=== PATIENT | female | born 1945 | race Caucasian/White ===

== ENCOUNTER → 2017-03-13 | Day surgery (SDC) | payer OTHER ==
[2017-03-06 10:20] VITALS: Ht 154.9 cm; Wt 72.3 kg
[~2017-03-13] VITALS: Ht 154.9 cm; Wt 72.3 kg
[~2017-03-13] MED LIST: ACYC1CAP8 PO; ATOR-22 PO; CALC600T9; FLUT230A INH; LIDOCAINE HCL 2% 2 ML VIAL (20MG/ML) ONE; LISI-461 PO; OMEG10007 PO; PROPOFOL IV EMULSION 10 MG/ML 20 ML VIAL IV ONE; VNTHFA/IN INH
[2017-03-13 12:01] VITALS: TEMP 36.6
--- NOTE | 2017-03-13 12:30 | Endo History and Physical ---
History & Physical Date of Service: Mar 13, 2017. Chief Complaint: Hx polyps Referring Physician: Heide Cha History of Present Illness History of colonic adenoma Past Medical History Arthritis, COPD Past Surgical History Hx Cardiac Surgery: No Hx Internal Defibrillator: No Hx Pacemaker: No Hx Abdominal Surgery: Yes (KEILA) Hx of Implantable Prosthesis: No Hx Post-Op Nausea and Vomiting: No Hx Cancer Surgery: No Hx Thoracic Surgery: No Hx Orthopedic: No Hx Urinary Tract Surgery: No Family History Colon CA Social History Smoking Status: Former Smoker Hx Substance Use: No Hx Alcohol Use: No Allergies Coded Allergies: Levofloxacin (Verified Allergy, Unknown, BUGS CRAWLING FACE, 03/06/17) Sulfamethoxazole w/Trimethoprim (Verified Allergy, Unknown, MOUTH SORES, ) Current Medications Reported Home Medications Medications Dose Route/Sig Max Daily Dose Days Date Category Ventolin Hfa (Albuterol) 200 Puffs/00993 Mcg Aers 2-4 Puffs INH Q6H PRN 03/06/17 Reported Lipitor (Atorvastatin Calcium) 20 Mg Tab 20 Mg PO QPM 03/06/17 Reported Zestril (Lisinopril) 10 Mg Tab 10 Mg PO QAM 03/06/17 Reported Advair Hfa 230/21 Mcg (Fluticasone-Salmeterol 230/21 Mcg) 1 Aer Aer 2 Puffs INH BID 01/27/15 Rx Calcium + D (Calcium Carbonate-Vitamin D) 1 Tab Tab 1 Tab DAILY@1230 01/23/15 Reported [place]-3 (Fish Oil) 1 Ea Cap 1 Cap PO QAM 06/15/08 Reported Zovirax (Acyclovir) 200 Mg Cap 200 Mg PO QPM 06/15/08 Reported Vital Signs Weight (Kilograms): 72.27 Height (Feet): 5 Height (Inches): 1 Date Time Temp Pulse Resp B/P (MAP) Pulse Ox O2 Delivery O2 Flow Rate FiO2 03/13/17 12:01 36.6 84 20 136/67 (90) 94 Room Air Physical Exam General Appearance: WD/WN, no apparent distress Respiratory/Chest: Auscultation: breath sounds normal, no wheezing Cardiovascular: Heart Auscultation: RRR, no murmurs Abdomen: Inspection & Palpation: soft, no tenderness, guarding & rebound Assessment and Plan Colonoscopy today.
--- NOTE | 2017-03-13 13:44 | Discharge Instructions ---
Endoscopy Patient Instructions Date / Procedure(s) Performed Mar 13, 2017. Colonoscopy Allergy Information Coded Allergies: Levofloxacin (Verified Allergy, Unknown, BUGS CRAWLING FACE, 03/06/17) Sulfamethoxazole w/Trimethoprim (Verified Allergy, Unknown, MOUTH SORES, ) Discharge Date / Findings Mar 13, 2017. Two small colon polyps removed. Medication Instructions Restart Stopped Medication(s): Restart all medications today. Provider Instructions Activity Restrictions - No exercising or heavy lifting for 24 hours. - Do not drink alcohol the day of the procedure. - Do not drive a car or operate machinery until the day after the procedure. - Do not make any important decisions or sign important papers in 24 hours after the procedure. Following Day: - Return to full activity which may include returning to work/school. Diet Start your diet with liquids and light foods (jello, soup, juice, toast). Then eat your usual diet if not nauseated. Treatment For Common After Affects For mild abdominal pain, bloating, or excessive gas: - Rest - Eat lightly - Lie on right side Follow-Up Information Follow-up with Heide Cha as scheduled Anesthesia Information What You Should Know You have had a procedure that required some medicine to reduce anxiety and discomfort. This treatment is called moderate sedation. After receiving the treatment, you may be sleepy, but you will be able to breathe on your own. The effects of the treatment may last for several hours. Follow these instructions along with Activity/Diet recommendations noted above: * Do NOT do anything where dizziness or clumsiness would be dangerous. * Rest quietly at home today, then you can be up and about tomorrow. * Have a responsible person stay with you the rest of today. * You may have had an I.V. today. If so, you may take the dressing off later today. Recommendations Call your doctor if: * Trouble breathing * Continuous vomiting for more than 24 hours * Temperature above 101 degrees * Severe abdominal pain or bloating * Pain not relieved by pain medicine ordered * There is increased drainage or redness from any incision * A large amount of rectal bleeding greater than 2-3 tablespoons. (If you had a polyp/s removed or have hemorrhoids, a small amount of blood - from the rectum is to be expected.) * You have any unanswered questions or concerns. IN THE EVENT OF A SERIOUS EMERGENCY, GO TO THE NEAREST EMERGENCY ROOM Your discharge instructions were prepared by provider Satish Gomez. Patient Instructions Signature Page [place] Patient (or Guardian) Signature/Date: I have read and understand the instructions given to me by my caregivers. Caregiver/RN/Doctor Signature/Date: The above-named patient and/or guardian has received patient instructions on this date. + Original Patient Signature Page (only) stays with chart. Please make copy for patient.
--- NOTE | 2017-03-13 13:56 | Anesthesiology Progress Note ---
Anesthesia Post Op Note Date & Time Mar 13, 2017 at 13:56 Vital Signs Pain Intensity: 0 Vital Signs Past 12 Hours Date Time Temp Pulse Resp B/P (MAP) Pulse Ox O2 Delivery O2 Flow Rate FiO2 03/13/17 13:40 80 20 121/53 (75) 96 Mask 10 03/13/17 12:01 36.6 84 20 136/67 (90) 94 Room Air Notes Mental Status: alert / awake / arousable, participated in evaluation Pt Amnestic to Procedure: Yes Nausea / Vomiting: adequately controlled Pain: adequately controlled Airway Patency, RR, SpO2: stable & adequate BP & HR: stable & adequate Hydration State: stable & adequate Anesthetic Complications: no major complications apparent Doing wel. Awake. VSS
[2017-03-13 14:10] VITALS: BP 133/61; PULSE 72; O2SAT 92
--- NOTE | 2017-03-14 00:14 | GI REPORT ---
Procedure Date: 03/13/2017 1:06 PM Procedure: Colonoscopy Indications: High risk colon cancer surveillance: Personal history of colonic polyps Medicines: Propofol per Anesthesia Complications: No immediate complications. Estimated blood loss: None. Estimated Blood Loss: Estimated blood loss: none. Procedure: Pre-Anesthesia Assessment: - Prior to the procedure, a History and Physical was performed, and patient medications, allergies and sensitivities were reviewed. The patient's tolerance of previous anesthesia was reviewed. - ASA Grade Assessment: III - A patient with severe systemic disease. After I obtained informed consent, the scope was passed under direct vision. Throughout the procedure, the patient's blood pressure, pulse, and oxygen saturations were monitored continuously. The scope was introduced through the anus and advanced to the terminal ileum, with identification of the appendiceal orifice and IC valve. The colonoscopy was performed with difficulty due to significant looping. The patient tolerated the procedure well. The quality of the bowel preparation was excellent. The bowel preparation used was split dose MIralax. Findings: A 3 mm polyp was found in the transverse colon. The polyp was flat. The polyp was removed with a cold snare. Resection and retrieval were complete. A 3 mm polyp was found at the splenic flexure. The polyp was sessile. The polyp was removed with a cold snare. Resection and retrieval were complete. Verification of patient identification for the specimens was done by the physician and nurse using the patient's name, date and medical record number. Impression: - One 3 mm polyp in the transverse colon, removed with a cold snare. Resected and retrieved. - One 3 mm polyp at the splenic flexure, removed with a cold snare. Resected and retrieved. - Otherwise normal to terminal ileum. Recommendation: - Repeat colonoscopy in 5 years for surveillance based on pathology results. - Discharge patient to home (with escort). Satish Gomez M.D. Satish Gomez MD 03/13/2017 1:43:34 PM This report has been signed electronically. Note Initiated On: 03/13/2017 1:06 PM I attest to the content of the Intraoperative Record and orders documented therein, exceptions below
== END | disposition home or self-care (01) ==
LOC: C.GI 11:41
PROVIDERS: ATTEND Internal Medicine Gastroenterology
DX: Z12.11 Encounter for screening for malignant neoplasm of colon (principal); D12.3 Benign neoplasm of transverse colon; Z86.010 Personal history of colon polyps; J44.9 Chronic obstructive pulmonary disease, unspecified; Z80.0 Family history of malignant neoplasm of digestive organs; Z87.891 Personal history of nicotine dependence; Z79.899 Other long term (current) drug therapy

== ENCOUNTER 2022-06-17 18:54 | Inpatient (IN) ==
[2022-06-17] MEDS ORDERED: ALBUT/IPRATROP 3MG/0.5MG NEB 3 ML VIAL INH STA (19:10)
[2022-06-17] MEDS ORDERED: methylPREDNISolone 125 MG/2 ML VIAL IV STA (19:10)
[2022-06-17] MEDS ORDERED: MAGNESIUM SULFATE / D5W 1 GM/100 ML BAG IV ONE (19:10)
--- NOTE | 2022-06-17 19:20 | Emergency Department Note ---
Impression & Plan Acute respiratory failure with hypoxia and hypercarbia, Acute exacerbation of chronic obstructive airways disease, Congestive heart failure ED Provider Note NAME: YOBANI BOND AGE: 77 SEX: F : 1945 ARRIVES VIA: Walk-In INFORMANT: Patient, ED PROVIDER(S): Sandip Randall MD Chief Complaint: Shortness of breath HPI: Patient presents due to concern for shortness of breath which has been ongoing for several days but seem to worsen today. The patient had been seen at [facility] in [place] by Dr. Mac and she was recommended to present to the emergency department yesterday but did not do so. Patient has had some leg swelling but is not on a diuretic. The patient is a former smoker but does not use oxygen at home. The patient was noted to be 78% on several liters in triage. Patient denies any chest pains or abdominal pain no nausea vomiting. Patient denies any cough. Patient does complain of MARTIN. No significant orthopnea. Patient has noticed some leg swelling. ROS: See HPI for pertinent positives and negatives. A total of 10 systems were reviewed and otherwise negative. Past medical history: See below Surgical history: See below Social history: See below Physical Exam: GENERAL: Mildly tachypneic in the mild distress. EYE EXAM: Normal conjunctiva. PERRL, no anisocoria and EOM's grossly intact w/o pain. NECK: Supple, no nuchal rigidity, no adenopathy, non-tender. No signs of meningismus. FROM of the neck with good chin to chest and neck extension. No stridor. LUNGS: Decreased breath sounds throughout, tachypnea noted HEART: NSR, no MRG. ABDOMEN: Abdomen soft, non-tender, normo-active bowel sounds, no masses, no rebound or guarding. BACK: No CVA TTP. SKIN: No rashes and no bruising. UPPER EXTREMITIES: Upper extremities are grossly normal. LOWER EXTREMITIES: Grossly normal, 1-2+ bilateral lower extremity edema, slightly greater in the left compared to the right. Erythema noted to the left calf no calf pain. Neurovascular intact distally bilaterally compartments are soft and without crepitus. NEURO EXAM: A&O x3, cranial nerves II-XII grossly intact, normal speech, moves all 4 extremities. Differential diagnoses: Reactive airway disease, pneumonia, pneumothorax, COPD, CHF, infections, cardiac ischemia, pulmonary embolism, musculoskeletal, gastrointestinal, as well as other pathologies. Course: Patient was seen and evaluated the bedside. Full history physical exam was performed. EKG interpreted by me Sinus with first-degree AV block, rate of 94 prolonged AL wide QRS left and a rash-like pattern. No sgarbossa criteria Imaging Studies: See Below Cardiac monitoring: An order was placed for continuous cardiac monitoring. The monitor shows a rate of 90 with sinus rhythm. MDM: Patient was seen due to concern for shortness of breath. Blood work was obtained patient was placed on BiPAP breathing treatment was ordered in addition to mag and duo nebs. EKG troponin BNP DVT ultrasound also ordered. The patient's blood work shows a normal white count H&H and platelet count. The patient's kidney function is unremarkable. The patient does have hypercarbia with associated acidosis seen on her VBG with a PCO2 of 78 VBG pH is 7.29. P atient is not confused and does appear to be improved after being on the BiPAP. The patient does have mild elevation in troponin at 19.2 elevation of BNP at 129. Patient was ordered Lasix 20 mg. The patient is Lasix warren. COVID flu and RSV negative. Patient's DVT ultrasound was negative. Patient's chest x-ray does show cardiomegaly emphysema and vascular congestion. There is consolidation of both lung bases. The patient did already receive a dose of Rocephin but this could also be fluid. I did speak with the on-call hospitalist Dr. Yarbrough and the patient was admitted to the medicine service. Critical Care: I have personally spent 65 minutes of critical care time in direct management of this patient. This includes bedside care, interpretation of diagnostic studies, and testing, discussion with consultants, patient, and family members, and other require inpatient management activities. This 65 minutes is in excess of all separately billable procedures. Past Med/Surg History Medical History Acute respiratory failure COPD (chronic obstructive pulmonary disease) Diabetes mellitus, type II Dyslipidemia History of adenomatous polyp of colon Hypertension Surgical History Status post appendectomy Status post cholecystectomy Status post colonoscopy Social History Smoking Status: Former smoker Hx Alcohol Use: No Hx Substance Use: No Feels Safe at Home: Yes Allergies Allergies Allergy/AdvReac Type Severity Reaction Status Date / Time Bactrim Allergy Unknown MOUTH SORES Verified 03/06/17 10:18 levofloxacin Allergy Unknown BUGS Verified 06/17/22 20:15 CRAWLING FACE sulfamethoxazole [Bactrim] Allergy Unknown MOUTH SORES Verified 06/17/22 20:15 trimethoprim [Bactrim] Allergy Unknown MOUTH SORES Verified 06/17/22 20:15 Home Meds Home Medications Medication Instructions Recorded Confirmed acyclovir 800 mg tablet 800 mg PO QAM 06/17/22 06/17/22 albuterol sulfate 90 mcg/actuation 2 puff inhalation Q4 PRN 06/17/22 06/17/22 aerosol inhaler SOB,COUGH,WHEEZING atorvastatin 20 mg tablet 20 mg PO HS 06/17/22 06/17/22 fluticasone propionate 230 2 puff inhalation BID 06/17/22 06/17/22 mcg-salmeterol 21 mcg/actuation HFA inhaler (Advair HFA) hydrochlorothiazide 12.5 mg capsule 12.5 mg PO QAM 06/17/22 06/17/22 lisinopril 20 mg tablet 40 mg PO QAM 06/17/22 06/17/22 metformin 500 mg tablet,extended 1,000 mg PO QAM 06/17/22 06/17/22 release 24 hr Results & Data (ED) Vital Signs Vital Signs - 24 hr 06/17/22 18:56 06/17/22 18:56 06/17/22 20:00 Temperature 36.8 C Temperature Source Temporal Artery Scan Pulse Rate 87 Pulse Rate [Finger] Pulse Rate from SpO2 Sensor 87 Respiratory Rate 30 H 18 Respiratory Effort / Characteristics Non-Labored Respiratory Depth Normal Respiratory Pattern Blood Pressure 142/70 H Blood Pressure Mean 94 Blood Pressure Position Sitting Pulse Oximetry 76 L 78 L 97 Oxygen Delivery Method Nasal Cannula Nasal Cannula BiPAP Oxygen Flow Rate 6 6 Fraction of Inspired Oxygen SaO2/FiO2 Ratio Sepsis Recent Fever Within 48 Hours No Sepsis New/Unexplained Change in Mental Status N/A Sepsis Action Taken by Nursing No Action Required 06/17/22 20:42 06/17/22 20:30 06/17/22 20:45 Temperature Temperature Source Pulse Rate 96 H 96 H Pulse Rate [Finger] Pulse Rate from SpO2 Sensor 93 H 99 H Respiratory Rate 26 H 27 H Respiratory Effort / Characteristics Respiratory Depth Respiratory Pattern Blood Pressure 152/75 H Blood Pressure Mean 100 Blood Pressure Position Pulse Oximetry 97 98 97 Oxygen Delivery Method BiPAP BiPAP BiPAP Oxygen Flow Rate Fraction of Inspired Oxygen SaO2/FiO2 Ratio Sepsis Recent Fever Within 48 Hours Sepsis New/Unexplained Change in Mental Status Sepsis Action Taken by Nursing 06/17/22 19:15 06/17/22 21:45 06/17/22 19:40 Temperature Temperature Source Pulse Rate 95 H Pulse Rate [Finger] 95 H Pulse Rate from SpO2 Sensor Respiratory Rate 26 H 26 H Respiratory Effort / Characteristics Spontaneous Spontaneous Respiratory Depth Normal Respiratory Pattern Regular Blood Pressure Blood Pressure Mean Blood Pressure Position Pulse Oximetry 90 90 Oxygen Delivery Method BiPAP Oxygen Flow Rate Fraction of Inspired Oxygen 30 28 30 SaO2/FiO2 Ratio Sepsis Recent Fever Within 48 Hours Sepsis New/Unexplained Change in Mental Status Sepsis Action Taken by Nursing 06/17/22 21:00 06/17/22 21:30 06/17/22 22:00 Temperature Temperature Source Pulse Rate 94 H 92 H Pulse Rate [Finger] Pulse Rate from SpO2 Sensor 94 H 92 H Respiratory Rate 23 23 Respiratory Effort / Characteristics Respiratory Depth Respiratory Pattern Blood Pressure 131/56 L 131/56 L 145/70 H Blood Pressure Mean 81 81 95 Blood Pressure Position Pulse Oximetry 97 87 L Oxygen Delivery Method Oxygen Flow Rate Fraction of Inspired Oxygen SaO2/FiO2 Ratio Sepsis Recent Fever Within 48 Hours Sepsis New/Unexplained Change in Mental Status Sepsis Action Taken by Nursing 06/17/22 22:27 06/17/22 22:24 06/17/22 23:00 Temperature Temperature Source Pulse Rate 91 H 84 Pulse Rate [Finger] Pulse Rate from SpO2 Sensor 83 Respiratory Rate 25 H 21 Respiratory Effort / Characteristics Non-Labored Spontaneous Respiratory Depth Normal Respiratory Pattern Regular Blood Pressure 117/53 L Blood Pressure Mean 74 Blood Pressure Position Pulse Oximetry 93 89 L 92 Oxygen Delivery Method BiPAP Oxygen Flow Rate Fraction of Inspired Oxygen 40 40 SaO2/FiO2 Ratio 232 Sepsis Recent Fever Within 48 Hours Sepsis New/Unexplained Change in Mental Status Sepsis Action Taken by Nursing 06/18/22 00:00 Temperature Temperature Source Pulse Rate 85 Pulse Rate [Finger] Pulse Rate from SpO2 Sensor 87 Respiratory Rate 20 Respiratory Effort / Characteristics Respiratory Depth Respiratory Pattern Blood Pressure 113/57 L Blood Pressure Mean 75 Blood Pressure Position Pulse Oximetry 93 Oxygen Delivery Method BiPAP Oxygen Flow Rate Fraction of Inspired Oxygen SaO2/FiO2 Ratio Sepsis Recent Fever Within 48 Hours Sepsis New/Unexplained Change in Mental Status Sepsis Action Taken by [facility] Medications Current Medication List: was personally reviewed by me Laboratory Data Attestation: I reviewed the patient's lab results. Result diagrams: 06/17/22 19:25 06/17/22 19:25 Lab Results 06/17/22 06/17/22 06/17/22 Range/Units 19:25 19:25 19:25 WBC 9.57 (4.8-10.8) K/ul RBC 4.40 (3.93-5.22) M/uL Hgb 12.5 (12.0-16.0) g/dl Hct 42.3 (34.1-44.9) % MCV 96.1 (80.0-100.0) fL MCH 28.4 (25.0-34.0) pg MCHC 29.6 L (32.0-36.0) g/dL RDW Std Deviation 55.3 H (36.4-46.3) fL RDW Coeff of Jesu 15.5 H (11.5-14.5) % Plt Count 307 (130-400) K/uL MPV 9.4 (9.4-12.3) fL Immature Gran % (Auto) 0.5 % Neut % (Auto) 74.4 % Lymph % (Auto) 13.5 % [place] % (Auto) 10.2 % Eos % (Auto) 0.7 % Baso % (Auto) 0.7 % Neut # (Auto) 7.11 H (1.4-6.5) K/uL Lymph # (Auto) 1.29 (1.2-3.4) K/uL [place] # (Auto) 0.98 H (0.24-0.82) K/uL Eos # (Auto) 0.07 (0-0.50) K/uL Baso # (Auto) 0.07 (0-0.2) K/uL Immature Gran # (Auto) 0.05 H (0.00-0.02) K/uL Absolute Nucleated RBC 0.03 H (0-0) K/uL Nucleated RBC % (auto) 0.3 % PT (9.0-12.0) Seconds INR (0.9-1.1) APTT (21.0-31.0) Seconds PTT Ratio VBG pH (7.36-7.41) VBG pCO2 (38-50) mmHg VBG pO2 mmHg VBG HCO3 mmol/L VBG O2 Saturation % VBG Base Excess mEq/L Sodium 135 L (136-145) mmol/L Potassium 4.5 (3.5-5.1) mmol/L Chloride 96 L (98-107) mmol/L Carbon Dioxide 34 H (21-32) mmol/L Anion Gap 5 (3-11) BUN 21 (6-23) mg/dl Creatinine 0.65 (0.6-1.2) mg/dl Est Cr Clr Drug Dosing 64.9 ml/min Est GFR ( Amer) 97.9 ml/min Est GFR (Non-Af Amer) 84.4 ml/min BUN/Creatinine Ratio 32.3 H (10-20) Glucose 158 H (70-99(Fasting)) mg/dl Calcium 8.7 (8.5-10.1) mg/dl Magnesium 2.2 (1.7-2.4) mg/dl Total Bilirubin 0.5 (0.2-1.0) mg/dl AST 18 (13-39) U/L ALT 17 (7-52) U/L Alkaline Phosphatase 61 (34-104) U/L Troponin I High Sens 19.2 H (0-14) pg/ml B-Natriuretic Peptide 129 H (0-100) pg/ml Total Protein 7.3 (6.0-8.3) gm/dl Albumin 4.1 (3.4-5.0) gm/dl Globulin 3.2 (2.5-4.0) gm/dl Albumin/Globulin Ratio 1.3 (0.9-2) SARS-CoV-2 (PCR) (Negative) Influenza Type A (PCR) (Neg) Influenza Type B (PCR) (Neg) RSV (RT-PCR) (Neg) 06/17/22 06/17/22 06/17/22 Range/Units 19:25 19:30 19:51 WBC (4.8-10.8) K/ul RBC (3.93-5.22) M/uL Hgb (12.0-16.0) g/dl Hct (34.1-44.9) % MCV (80.0-100.0) fL MCH (25.0-34.0) pg MCHC (32.0-36.0) g/dL RDW Std Deviation (36.4-46.3) fL RDW Coeff of Jesu (11.5-14.5) % Plt Count (130-400) K/uL MPV (9.4-12.3) fL Immature Gran % (Auto) % Neut % (Auto) % Lymph % (Auto) % [place] % (Auto) % Eos % (Auto) % Baso % (Auto) % Neut # (Auto) (1.4-6.5) K/uL Lymph # (Auto) (1.2-3.4) K/uL [place] # (Auto) (0.24-0.82) K/uL Eos # (Auto) (0-0.50) K/uL Baso # (Auto) (0-0.2) K/uL Immature Gran # (Auto) (0.00-0.02) K/uL Absolute Nucleated RBC (0-0) K/uL Nucleated RBC % (auto) % PT 10.9 (9.0-12.0) Seconds INR 1.0 (0.9-1.1) APTT 23.5 (21.0-31.0) Seconds PTT Ratio 0.9 VBG pH 7.29 L (7.36-7.41) VBG pCO2 78 H (38-50) mmHg VBG pO2 58 mmHg VBG HCO3 38 mmol/L VBG O2 Saturation 86.8 % VBG Base Excess 7.9 mEq/L Sodium (136-145) mmol/L Potassium (3.5-5.1) mmol/L Chloride (98-107) mmol/L Carbon Dioxide (21-32) mmol/L Anion Gap (3-11) BUN (6-23) mg/dl Creatinine (0.6-1.2) mg/dl Est Cr Clr Drug Dosing ml/min Est GFR ( Amer) ml/min Est GFR (Non-Af Amer) ml/min BUN/Creatinine Ratio (10-20) Glucose (70-99(Fasting)) mg/dl Calcium (8.5-10.1) mg/dl Magnesium (1.7-2.4) mg/dl Total Bilirubin (0.2-1.0) mg/dl AST (13-39) U/L ALT (7-52) U/L Alkaline Phosphatase (34-104) U/L Troponin I High Sens (0-14) pg/ml B-Natriuretic Peptide (0-100) pg/ml Total Protein (6.0-8.3) gm/dl Albumin (3.4-5.0) gm/dl Globulin (2.5-4.0) gm/dl Albumin/Globulin Ratio (0.9-2) SARS-CoV-2 (PCR) NEGATIVE (Negative) Influenza Type A (PCR) Negative (Neg) Influenza Type B (PCR) Negative (Neg) RSV (RT-PCR) Negative (Neg) Administered Medications Discontinued Medications Albuterol (Albut/Ipratrop 3mg/0.5mg Neb 3 Ml Vial) 12 ml INH ONE STA Stop: 06/17/22 19:11 Last Admin: 06/17/22 19:33 Dose: 12 ml Documented By: ABISAI Furosemide (Furosemide Inj 20 Mg/2 Ml Vial) 20 mg IV ONE ONE Stop: 06/17/22 20:46 Last Admin: 06/17/22 21:29 Dose: 20 mg Documented By: DP Magnesium Sulfate/Dextrose (Magnesium Sulfate / D5w) 1 gm in 100 mls @ 200 mls/hr IV ONE ONE Stop: 06/17/22 19:39 Last Infusion: 06/17/22 19:58 Dose: 0 mls/hr Documented By: Admin: 06/17/22 19:27 Dose: 200 mls/hr Documented By: ABISAI Ceftriaxone Sodium (Rocephin) 2,000 mg in 70 mls @ 140 mls/hr IV NOW STA Stop: 06/17/22 20:04 Last Infusion: 06/17/22 21:03 Dose: 0 mls/hr Documented By: Admin: 06/17/22 20:23 Dose: 140 mls/hr Documented By: [id number] Methylprednisolone (Methylprednisolone 125 Mg/2 Ml Vial) 125 mg IV NOW STA Stop: 06/17/22 19:11 Last Admin: 06/17/22 19:29 Dose: 125 mg Documented By: ABISAI Imaging Data Radiologist's Impression: Chest X-Ray 06/17/22 19:10 SINGLE VIEW CHEST CLINICAL HISTORY: Dyspnea. FINDINGS: An AP, portable, upright chest radiograph is compared to study dated 01/24/2015 and correlated with chest CT dated 01/23/2015. The examination is de graded by portable technique, and by the patient's head obscuring the apices. The heart is enlarged noting atherosclerotic calcification of the thoracic aorta. There is pulmonary vascular congestion. Emphysema and chronic interstitial thickening similar to previous. Airspace consolidation is seen at both lung bases. No pneumothorax is seen. The skeletal structures are osteopenic. The bony thorax is grossly intact. IMPRESSION: 1. Cardiomegaly and emphysema with pulmonary vascular congestion. 2. Airspace consolidation is seen at both lung bases. This could represent a component of pulmonary edema and/or pneumonia/aspiration pneumonitis. Clinical correlation will be required and radiographic follow-up to resolution is recommended. ACT 112: Negative or not required by law. Electronically signed by: Arik Riggs M.D. 06/17/2022 7:56 PM Venous Doppler Study 06/17/22 19:12 ULTRASOUND LEFT LOWER EXTREMITY VENOUS CLINICAL HISTORY: Left leg swelling. Hypoxia. COMPARISON STUDY: No priors. TECHNIQUE: Real-time, grayscale, and color Doppler sonography of the deep veins of the left lower extremity was performed from the inguinal crease to the calf. Compression and augmentation were utilized. FINDINGS: There is no sonographic evidence of deep venous thrombosis identified in the left lower extremity. The common femoral, superficial femoral, and popliteal veins are patent and normally compressible. The greater saphenous vein and the profunda femoris vein at the junction with the common femoral vein are clear. The visualized calf veins are patent. IMPRESSION: There is no sonographic evidence of deep venous thrombosis identified in the left lower extremity. ACT 112: Negative or not required by law. Electronically signed by: Arik Riggs M.D. 06/17/2022 8:39 PM Discharge Plan Visit Data Chief Complaint: Shortness of Breath/Dyspnea Stated Complaint: TROUBLE BREATHING, PNEUMONIA ED Provider: Sandip Randall Discharge Problem: Acute respiratory failure with hypoxia and hypercarbia, Acute exacerbation of chronic obstructive airways disease, Congestive heart failure Patient Disposition: Admitted As Inpatient Discharge Instructions Interventions: ED Discharge Assessment Last Done: 06/17/22 23:20 Forms Stand Alone Forms: My [employer] Prescriptions Prescriptions: No Action atorvastatin 20 mg tablet 20 mg PO HS lisinopril 20 mg tablet 40 mg PO QAM acyclovir 800 mg tablet 800 mg PO QAM hydrochlorothiazide 12.5 mg capsule 12.5 mg PO QAM albuterol sulfate 90 mcg/actuation HFA aerosol inhaler 2 puff INHALATION Q4 PRN (Reason: SOB,COUGH,WHEEZING) metformin 500 mg tablet extended release 24 hr 1,000 mg PO QAM Advair HFA 230-21 mcg/actuation HFA aerosol inhaler 2 puff INHALATION BID Referrals Referrals: PCP,NO [Physician] -
[2022-06-17] MEDS ORDERED: cefTRIAXone SODIUM 2,000 MG/70 ML BAG IV STA (19:35)
[2022-06-17 19:45] LABS: Basophils # (auto) 0.07 K/uL (0-0.2); Basophils % (auto) 0.7 %; Eosinophils # (auto) 0.07 K/uL (0-0.50); Eosinophils % (auto) 0.7 %; Hematocrit (blood only) 42.3 % (34.1-44.9); Hemoglobin 12.5 g/dl (12.0-16.0); Immature Granulocytes # (auto) 0.05 K/uL (0.00-0.02); Immature Granulocytes % (auto) 0.5 %; Lymphocytes # (auto) 1.29 K/uL (1.2-3.4); Lymphocytes % (auto) 13.5 %; Mean Corpuscular Hemoglobin 28.4 pg (25.0-34.0); Mean Corpuscular Hgb Conc 29.6 g/dL (32.0-36.0); Mean Corpuscular Volume 96.1 fL (80.0-100.0); Mean Platelet Volume 9.4 fL (9.4-12.3); Monocytes # (auto) 0.98 K/uL (0.24-0.82); Monocytes % (auto) 10.2 %; Neutrophils # (auto) 7.11 K/uL (1.4-6.5); Neutrophils % (auto) 74.4 %; Nucleated RBC # (auto) 0.03 K/uL (0-0); Nucleated RBC % (auto) 0.3 %; Platelet Count 307 K/uL (130-400); RDW Coefficient of Variation 15.5 % (11.5-14.5); RDW Standard Deviation 55.3 fL (36.4-46.3); White Blood Count 9.57 K/ul (4.8-10.8)
[2022-06-17 19:58] LABS: Base Excess VBG 7.9 mEq/L; HCO3 VBG 38 mmol/L; Oxygen Saturation VBG 86.8 %; PCO2 VBG 78 mmHg (38-50); PO2 VBG 58 mmHg; pH VBG 7.29 (7.36-7.41)
--- NOTE | 2022-06-17 19:58 | XRay Report ---
SINGLE VIEW CHEST CLINICAL HISTORY: Dyspnea. FINDINGS: An AP, portable, upright chest radiograph is compared to study dated 01/24/2015 and correlate d with chest CT dated 01/23/2015. The examination is degraded by portable technique, and by the patient 's head obscuring the apices. The heart is enlarged noting atherosclerotic calcification of the thor acic aorta. There is pulmonary vascular congestion. Emphysema and chronic interstitial thickening sim ilar to previous. Airspace consolidation is seen at both lung bases. No pneumothorax is seen. The ske letal structures are osteopenic. The bony thorax is grossly intact. IMPRESSION: 1. Cardiomegaly and emphysema with pulmonary vascular congestion. 2. Airspace consolidation is seen at both lung bases. This could represent a component of pulmonary e roro and/or pneumonia/aspiration pneumonitis. Clinical correlation will be required and radiographic follow-up to resolution is recommended. ACT 112: Negative or not required by law. Electronically signed by: Arik Riggs M.D. 06/17/2022 7:56 PM
[2022-06-17 20:07] LABS: Partial Thromboplastin Ratio 0.9; Partial Thromboplastin Time 23.5 Seconds (21.0-31.0); Prothrombin Time 10.9 Seconds (9.0-12.0)
[2022-06-17 20:13] LABS: Albumin Globulin Ratio 1.3 (0.9-2); Albumin Level 4.1 gm/dl (3.4-5.0); BUN Creatinine Ratio 32.3 (10-20); Bilirubin,Total 0.5 mg/dl (0.2-1.0); Calcium 8.7 mg/dl (8.5-10.1); Creatinine Clr Calc Pharmacy 64.9 ml/min; Est GFR (African American) 97.9 ml/min; Est GFR (Non-African American) 84.4 ml/min; Globulin 3.2 gm/dl (2.5-4.0); Magnesium 2.2 mg/dl (1.7-2.4); Potassium 4.5 mmol/L (3.5-5.1); Total Protein 7.3 gm/dl (6.0-8.3); Troponin I High Sensitivity 19.2 pg/ml (0-14)
[2022-06-17 20:26] LABS: Influenza A virus by PCR Negative (Neg); Influenza B virus by PCR Negative (Neg); RSV by PCR Negative (Neg); SARS CoV2 RNA(COVID-19) Ceph NEGATIVE (Negative)
--- NOTE | 2022-06-17 20:40 | Ultrasound Report ---
ULTRASOUND LEFT LOWER EXTREMITY VENOUS CLINICAL HISTORY: Left leg swelling. Hypoxia. COMPARISON STUDY: No priors. TECHNIQUE: Real-time, grayscale, and color Doppler sonography of the deep veins of the left lower ext remity was performed from the inguinal crease to the calf. Compression and augmentation were utilized . FINDINGS: There is no sonographic evidence of deep venous thrombosis identified in the left lower ext remity. The common femoral, superficial femoral, and popliteal veins are patent and normally compress ible. The greater saphenous vein and the profunda femoris vein at the junction with the common femora l vein are clear. The visualized calf veins are patent. IMPRESSION: There is no sonographic evidence of deep venous thrombosis identified in the left lower e xtremity. ACT 112: Negative or not required by law. Electronically signed by: Arik Riggs M.D. 06/17/2022 8:39 PM
[2022-06-17] MEDS ORDERED: FUROSEMIDE INJ 20 MG/2 ML VIAL IV ONE (20:45)
[2022-06-18] MEDS ORDERED: POLYETHYLENE (MIRALAX) 17 GM PACK PO PRN (00:39)
[2022-06-18] MEDS ORDERED: FUROSEMIDE INJ 20 MG/2 ML VIAL IV ONE (00:39)
[2022-06-18] MEDS ORDERED: NITROGLYCERIN SL 0.4 MG/TAB TAB SL PRN (00:39)
[2022-06-18] MEDS ORDERED: ALBUT/IPRATROP 3MG/0.5MG NEB 3 ML VIAL NEB PRN (00:39)
[2022-06-18] MEDS ORDERED: ONDANSETRON INJ 2 MG/ML 2 ML VIAL IV PRN (00:39)
[2022-06-18] MEDS ORDERED: ALBUTEROL HFA 8 GM INHALER INH PRN (00:39)
[2022-06-18] MEDS ORDERED: ACETAMINOPHEN 325 MG TAB PO PRN (00:39)
--- NOTE | 2022-06-18 01:08 | History and Physical Report ---
DATE OF ADMISSION: 06/17/2022. CHIEF COMPLAINT: Shortness of breath. HISTORY OF PRESENT ILLNESS: A 77-year-old female with past medical history significant for type 2 diabetes, hyperlipidemia, COPD, hypertension, hepatic steatosis, history of osteoarthritis of multiple joints, history of shingles in the eyes and she takes acyclovir when it flares up, currently taking it, presents with shortness of breath, has been going on for 1 week. She went to PCP's office yesterday for routine visit and found to be hypoxic and advised to come to the EMS, but the patient wanted to go with family members, but apparently she did not come and today she comes with shortness of breath and oxygen sats were 76-78% when she came in and placed on BiPAP. She is saturating in the high 90s on BiPAP, resting comfortably. She states she did not have cough, but after nebs treatment in the ER, she has some phlegm coming out. Denies any chest pain, no headache. Right ear is somewhat groggy. No runny nose, no sore throat. No fevers, no nausea, no vomiting, no abdominal pain. Normal bowel and bladder movements. She also has some swelling in the legs going on for one to two weeks, some dizziness going on for the last one to two weeks. ALLERGIES: BACTRIM AND LEVAQUIN. PAST MEDICAL HISTORY: As mentioned above. PAST SURGICAL HISTORY: Cervix lesion biopsy, colonoscopies, laparoscopic cholecystectomy, appendectomy, cataract surgery. MEDICATIONS: The patient is on acyclovir 800 mg p.o. a.m., albuterol 2 puffs inhalation q.4 hours p.r.n., atorvastatin 20 mg p.o. at bedtime, Advair Diskus 2 puffs inhalation b.i.d., hydrochlorothiazide 12.5 mg p.o. a.m., lisinopril 40 mg p.o. a.m., metformin 1000 mg p.o. a.m. FAMILY HISTORY: Significant for mother has diabetes, twin brother on dialysis. SOCIAL HISTORY: , quit smoking in 2016, smoked half pack a day for 40 years. No alcohol use. No drug use. REVIEW OF SYSTEMS: As per HPI. Rest of the review of systems is negative. PHYSICAL EXAMINATION: GENERAL: The patient is obese, not in acute distress. VITAL SIGNS: Temperature 36.8, pulse 96, respiratory rate 20, blood pressure 150/75, oxygen 97% on BiPAP. HEENT: Pupils equal, round and reactive to light. Head is atraumatic. NECK: No JVD or neck masses. CARDIOVASCULAR: S1 and S2 heard. Regular rate and rhythm. No murmur, no gallop. RESPIRATORY SYSTEM: Normal AP diameter. No accessory muscle use. Bibasilar crackles or rhonchi heard. ABDOMEN: Soft, bowel sounds present, nontender, no distention. CENTRAL NERVOUS SYSTEM: Cranial nerves II through XII grossly intact, nonfocal. EXTREMITIES: Lower extremity, +2 pedal edema present, slightly erythematous changes seen. LABORATORY DATA: WBC 9.5, hemoglobin 12.5, hematocrit 42.3, platelets 607. PT 10.9, INR 1, APTT 23.5. Venous blood gas, pH of 7.29, pCO2 of 78. Sodium 135, potassium 4.5, chloride 96, CO2 of 34, BUN 21, creatinine 0.6, serum glucose 158, calcium 8.7, magnesium 2.2, total bilirubin 0.5, AST 18, ALT 17, alkaline phosphatase 61. Troponin I high sensitivity 19.2. BNP 129. SARS-CoV-2 PCR negative. Influenza A and B PCR negative. RSV PCR negative. IMAGING DATA: Venous Doppler of the left lower extremity, no DVT. Chest x-ray: Cardiomegaly and emphysema with pulmonary vascular congestion, airspace consolidation is seen in both lung bases, this could represent a component of pulmonary edema, pneumonia or aspiration pneumonitis. EKG: Normal sinus rhythm at a rate of 94. Nonspecific ST changes seen. ASSESSMENT AND PLAN: This 77-year-old female presents with shortness of breath. 1. Shortness of breath, hypoxia requiring BiPAP, possible acute congestive heart failure, possible chronic obstructive pulmonary disease exacerbation, underlying pneumonia versus possible aspiration pneumonitis: Received a dose of Lasix 20 mg in the ER. We will give another dose of 20 of IV Lasix. She also received steroids in the ER. We will continue with Solu-Medrol 40 mg t.i.d., DuoNebs around the clock and p.r.n. Continue BiPAP for now. Can taper to OxyMask later if she is stable. Closely monitor in tele floor. Follow serial cardiac enzymes, echocardiogram. Consult Cardiology in the a.m. for further recommendations and follow the echo report and response to the above treatment. 2. Possible pneumonia, questionable aspiration pneumonitis: We will place her on Unasyn and doxycycline. Follow the response. We will also get speech evaluation. 3. Diabetes: Hold metformin. Place on insulin sliding scale. Follow the blood sugars as the patient is on steroids. 4. History of hypertension: Continue home lisinopril and hydrochlorothiazide. Monitor the blood pressure. 5. History of hyperlipidemia: Continue statin. 6. Deep venous thrombosis prophylaxis. Lovenox. DISPOSITION: Closely monitor in the tele floor. Level 1 full code. Expect to discharge home and follow with family doctor. Job ID: [id number] [facility]
[2022-06-18] MEDS: DOXYCYCLINE HYCLATE 100 MG in DEXTROSE 5% 100 ML IV SCH ×2 (01:46→14:30)
[2022-06-18] MEDS: ALBUT/IPRATROP 3MG/0.5MG NEB 3 ML VIAL NEB SCH ×4 (05:06→17:28)
[2022-06-18 05:59] LABS: Hematocrit (blood only) 39.4 % (34.1-44.9); Hemoglobin 12.1 g/dl (12.0-16.0); Mean Corpuscular Hemoglobin 28.9 pg (25.0-34.0); Mean Corpuscular Hgb Conc 30.7 g/dL (32.0-36.0); Mean Platelet Volume 9.7 fL (9.4-12.3); Nucleated RBC # (auto) 0.02 K/uL (0-0); Nucleated RBC % (auto) 0.2 %; Platelet Count 291 K/uL (130-400); RDW Coefficient of Variation 15.7 % (11.5-14.5); RDW Standard Deviation 53.9 fL (36.4-46.3); Red Blood Count 4.19 M/uL (3.93-5.22); White Blood Count 8.39 K/ul (4.8-10.8)
[2022-06-18] MEDS ORDERED: methylPREDNISolone 40 MG in SYRINGE 0 ML IV SCH (06:00)
[2022-06-18] MEDS: AMPICILLIN/SULBACTAM SOD 1,500 MG in 0.9 % SODIUM CHLORIDE 100 ML IV SCH ×4 (06:16→23:29)
[2022-06-18 06:24] LABS: Basophils # (auto) 0.02 K/uL (0-0.2); Basophils % (auto) 0.2 %; Immature Granulocytes # (auto) 0.05 K/uL (0.00-0.02); Immature Granulocytes % (auto) 0.6 %; Lymphocytes # (auto) 0.54 K/uL (1.2-3.4); Lymphocytes % (auto) 6.4 %; Monocytes # (auto) 0.19 K/uL (0.24-0.82); Monocytes % (auto) 2.3 %; Neutrophils # (auto) 7.59 K/uL (1.4-6.5); Neutrophils % (auto) 90.5 %
[2022-06-18 06:27] LABS: BUN Creatinine Ratio 31.4 (10-20); Calcium 8.2 mg/dl (8.5-10.1); Creatinine Clr Calc Pharmacy 61.3 ml/min; Est GFR (African American) 95.5 ml/min; Est GFR (Non-African American) 82.4 ml/min; Magnesium 2.2 mg/dl (1.7-2.4); Potassium 5.1 mmol/L (3.5-5.1)
[2022-06-18 06:35] LABS: Troponin I High Sensitivity 14.8 pg/ml (0-14)
--- NOTE | 2022-06-18 07:07 | Electrocardiogram Report ---
Test Reason : Blood Pressure : / mmHG Vent. Rate : 094 BPM Atrial Rate : 094 BPM P-R Int : 208 ms QRS Dur : 122 ms QT Int : 386 ms P-R-T Axes : 096 032 056 degrees QTc Int : 482 ms Poor data quality, interpretation may be adversely affected Normal sinus rhythm Left bundle branch block Abnormal ECG When compared with ECG of 23-JAN-2015 11:27, QRS duration has increased Confirmed by Bhavesh Ortiz ([id number]) on 06/18/2022 7:07:10 AM Referred By: Sergey Reyes Confirmed By:Ady Ortiz
[2022-06-18] MEDS: hydroCHLOROthiazide 25 MG TAB PO SCH (09:04)
[2022-06-18] MEDS: lisinopril 40 MG TAB PO SCH (09:04)
[2022-06-18] MEDS: FLUTICASONE/VILANTEROL 200/25MCG 14 PUFFS/INHALER INH SCH (09:05)
[2022-06-18] MEDS: ENOXAPARIN INJ 40 MG/0.4 ML SYR SQ SCH (09:05)
[2022-06-18] MEDS: ACYCLOVIR 400 MG TAB PO SCH (09:05)
[2022-06-18] MEDS: INSULIN ASPART PER UNIT SC SCH ×4 (09:08→21:29)
--- NOTE | 2022-06-18 10:45 | Hospitalist Progress Note ---
Date of Service June 18, 2022 Assessment & Plan (1) Acute respiratory failure with hypoxia and hypercarbia: (2) Pneumonia: (3) Acute exacerbation of chronic obstructive airways disease: Plan: Per PCP records from 06/16, patient has been having sinus congestion, rhinorrhea and MARTIN for 1 week Was hypoxic on room air at 81% during that PCP visit and reqired 3L in PCP office Recommendation was made for patient to go to ER via EMS but pt declined Currently reports only MARTIN and some ear fullness On presentation, pH was 7.29, pCO2 78, bicarb 34 CXR noted cardiomegaly, emphysema, pulm vasc congestion and arispace opacities in both lung bases. Required BIPAP overnight Currently on nasal cannula Wean oxygen to goal of 90-92% Continue Unasyn and doxycycline Based on labs, she has chronic hypercarbia Possible undiagnosed HELEN/OHS/disordered breathing Patient will need pulm f/u, PFT/Sleep study on discharge Continue nebs Change solumedrol to prednisone (4) LBBB (left bundle branch block): (5) Elevated troponin I level: (6) Acute diastolic heart failure with preserved ejection fraction: Plan: Trop mildly elevated but flat Has LBBB on EKG Echo noted preserved EF and septal motion consistent with conduction abnormalities. Card eval and recommendation noted Got IV lasix 20mg x2 on admission. Will monitor for now Cards recommend outpatient ischemia workup (7) Hypertension: Plan: Continue home lisinopril Monitor (8) Diabetes mellitus, type II: Plan: Hold home metformin ISS per protocol Carb controlled diet (9) Dyslipidemia: Plan: Continue home atorvastatin (10) DVT prophylaxis: Plan: Lovenox sq Admission and Anticipated Discharge Date Admission Date: June 17, 2022 Subjective Patient seen and examined Reports feeling of 'pounding in the ears', exertional dyspnea Reports feeling unwell Denied chest pain, cough Denied fevers, chills, nausea, abd pain, diarrhea Denied dysuria, freq, urgency Reports leg swelling which is chronic Physical Exam Constitutional: + well hydrated and + obese; no acute distress Eyes: PERRL, conjunctivae normal, anicteric sclerae ENMT: external ear and nose normal, oropharynx normal Respiratory: normal respiratory effort; no respiratory distress Basilar crackles Cardiovascular: Rate/Rhythm: regular rate and regular rhythm S1 S2 Gastrointestinal (Abdomen): normal bowel sounds, soft, nontender, no hepatosplenomegaly Musculoskeletal: + pedal edema Neurologic: PERRL, EOMI, accommodation nl, no face palsy, no dysarthria Psychiatric: A+Ox3, euthymic affect Results & Data Results & Data ([facility]) Vital Signs (Past 12 Hours) Vital Signs Temp Pulse Pulse Resp BP BP Pulse Ox 06/18/22 07:58 36.4 C L 83 19 119/54 L 94 06/18/22 06:07 76 06/18/22 05:06 75 20 96 06/18/22 05:43 75 20 96 06/18/22 03:44 27 H 94 06/18/22 02:49 36.5 C 85 18 128/67 93 06/18/22 01:31 87 06/18/22 00:20 106 H 26 H 94 06/18/22 00:56 37.0 C 89 18 96 06/18/22 00:51 06/18/22 00:39 06/18/22 00:00 85 20 113/57 L 93 06/17/22 23:00 84 21 117/53 L 92 Pulse Ox O2 Del Method O2 Del Method O2 Flow Rate FiO2 06/18/22 07:58 Nasal Cannula 6 06/18/22 06:07 06/18/22 05:06 BiPAP 40 06/18/22 05:43 40 06/18/22 03:44 40 06/18/22 02:49 BiPAP 06/18/22 01:31 06/18/22 00:20 40 06/18/22 00:56 BiPAP 06/18/22 00:51 BiPAP 40 06/18/22 00:39 95 BiPAP 06/18/22 00:00 BiPAP 06/17/22 23:00 BiPAP Laboratory Results Abnormal lab results 06/17/22 06/17/22 06/17/22 Range/Units 19:25 19:25 19:25 MCHC 29.6 L (32.0-36.0) g/dL RDW Std Deviation 55.3 H (36.4-46.3) fL RDW Coeff of Jesu 15.5 H (11.5-14.5) % Neut # (Auto) 7.11 H (1.4-6.5) K/uL Lymph # (Auto) (1.2-3.4) K/uL Moca # (Auto) 0.98 H (0.24-0.82) K/uL Immature Gran # (Auto) 0.05 H (0.00-0.02) K/uL Absolute Nucleated RBC 0.03 H (0-0) K/uL VBG pH (7.36-7.41) VBG pCO2 (38-50) mmHg Sodium 135 L (136-145) mmol/L Chloride 96 L (98-107) mmol/L Carbon Dioxide 34 H (21-32) mmol/L BUN/Creatinine Ratio 32.3 H (10-20) Glucose 158 H (70-99(Fasting)) mg/dl POC Glucose (70-99) mg/dl Calcium (8.5-10.1) mg/dl Troponin I High Sens 19.2 H (0-14) pg/ml B-Natriuretic Peptide 129 H (0-100) pg/ml 06/17/22 06/18/22 06/18/22 Range/Units 19:51 05:37 05:37 MCHC 30.7 L (32.0-36.0) g/dL RDW Std Deviation 53.9 H (36.4-46.3) fL RDW Coeff of Jesu 15.7 H (11.5-14.5) % Neut # (Auto) 7.59 H (1.4-6.5) K/uL Lymph # (Auto) 0.54 L (1.2-3.4) K/uL Moca # (Auto) 0.19 L (0.24-0.82) K/uL Immature Gran # (Auto) 0.05 H (0.00-0.02) K/uL Absolute Nucleated RBC 0.02 H (0-0) K/uL VBG pH 7.29 L (7.36-7.41) VBG pCO2 78 H (38-50) mmHg Sodium 133 L (136-145) mmol/L Chloride 94 L (98-107) mmol/L Carbon Dioxide 34 H (21-32) mmol/L BUN/Creatinine Ratio 31.4 H (10-20) Glucose 178 H (70-99(Fasting)) mg/dl POC Glucose (70-99) mg/dl Calcium 8.2 L (8.5-10.1) mg/dl Troponin I High Sens 14.8 H D (0-14) pg/ml B-Natriuretic Peptide (0-100) pg/ml 06/18/22 Range/Units 07:32 MCHC (32.0-36.0) g/dL RDW Std Deviation (36.4-46.3) fL RDW Coeff of Jesu (11.5-14.5) % Neut # (Auto) (1.4-6.5) K/uL Lymph # (Auto) (1.2-3.4) K/uL Moca # (Auto) (0.24-0.82) K/uL Immature Gran # (Auto) (0.00-0.02) K/uL Absolute Nucleated RBC (0-0) K/uL VBG pH (7.36-7.41) VBG pCO2 (38-50) mmHg Sodium (136-145) mmol/L Chloride (98-107) mmol/L Carbon Dioxide (21-32) mmol/L BUN/Creatinine Ratio (10-20) Glucose (70-99(Fasting)) mg/dl POC Glucose 178 H (70-99) mg/dl Calcium (8.5-10.1) mg/dl Troponin I High Sens (0-14) pg/ml B-Natriuretic Peptide (0-100) pg/ml
--- NOTE | 2022-06-18 10:45 | Cardiology Consultation ---
Date of Consultation June 18, 2022 Assessment & Plan (1) Acute respiratory failure with hypoxia and hypercarbia: (2) Acute exacerbation of chronic obstructive airways disease: (3) Pneumonia: (4) Acute diastolic heart failure with preserved ejection fraction: (5) LBBB (left bundle branch block): (6) Elevated troponin I level: Plan 77-year-old female admitted with COPD exacerbation, community-acquired pneumonia and superimposed mild heart failure. Her respiratory status improved with diuretic therapy, corticosteroids, and antibiotics. She does not appear overtly volume overloaded on exam currently, however, chest x-ray with evidence of pulmonary vascular congestion and echocardiogram with indirect evidence of elevated right atrial filling pressure. She received 2 doses of IV furosemide since admission. Recommend repeat basic metabolic panel in a.m. with consid eration for further loop diuretic pending physical exam and review of lab studies. Troponin is mildly elevated, however flat and not indicative of acute plaque rupture event. Troponin is elevated likely secondary to acute respiratory insufficiency in the setting of hypoxia. LV function is preserved per echocardiogram with abnormal septal motion consistent with left bundle branch block. Ischemic evaluation will be performed in the outpatient setting. Continue outpatient doses of lisinopril and hydrochlorothiazide at this time. DVT prophylaxis with subcutaneous Lovenox. History of Present Illness Reason for Consultation: CHF Requesting Physician: Dr. Yarbrough Attending Physician: More Nelson MD History of Present Illness 77-year-old female present to the emergency department with shortness of breath, hypoxia, and hypercapnia. Treated with IV Lasix, antibiotics, and BiPAP. Clinically improved overnight. This morning she is awake and alert. Oxygen saturation 98% on 6 L nasal cannula. Reports a longstanding history of COPD however she has not worn oxygen at home for many years. Denies any recent edema, weight gain, orthopnea, or PND. No personal history of coronary disease, congestive heart failure, or rheumatic fever as a child. ECG on admission demonstrating a left bundle branch block which is new compared to most recent ECG from 2015. Chest x-ray consistent with pulmonary vascular congestion, COPD, and bilateral pneumonia. Allergies Allergy/AdvReac Type Severity Reaction Status Date / Time Bactrim Allergy Unknown MOUTH SORES Verified 03/06/17 10:18 levofloxacin Allergy Unknown BUGS Verified 06/17/22 20:15 CRAWLING FACE sulfamethoxazole [Bactrim] Allergy Unknown MOUTH SORES Verified 06/17/22 20:15 trimethoprim [Bactrim] Allergy Unknown MOUTH SORES Verified 06/17/22 20:15 Home Medications Medication Instructions Recorded Confirmed Type acyclovir 800 mg tablet 800 mg PO QAM 06/17/22 06/17/22 History albuterol sulfate 90 mcg/actuation 2 puff inhalation Q4 PRN 06/17/22 06/17/22 History aerosol inhaler SOB,COUGH,WHEEZING atorvastatin 20 mg tablet 20 mg PO HS 06/17/22 06/17/22 History fluticasone propionate 230 2 puff inhalation BID 06/17/22 06/17/22 History mcg-salmeterol 21 mcg/actuation HFA inhaler (Advair HFA) hydrochlorothiazide 12.5 mg capsule 12.5 mg PO QAM 06/17/22 06/17/22 History lisinopril 20 mg tablet 40 mg PO QAM 06/17/22 06/17/22 History metformin 500 mg tablet,extended 1,000 mg PO QAM 06/17/22 06/17/22 History release 24 hr Patient History Medical History (Updated 06/18/22 @ 11:50 by More Nelson MD) Acute respiratory failure COPD (chronic obstructive pulmonary disease) Diabetes mellitus, type II Dyslipidemia History of adenomatous polyp of colon Hypertension Surgical History Status post appendectomy Status post cholecystectomy Status post colonoscopy Social History Smoking Status: Former smoker Second Hand Exposure: No; Do You Dip or Chew Tobacco: No; Tobacco Cessation Education Requested by Patient: No Hx Alcohol Use: No Hx Substance Use: No Preferred Language: Maltese Communication Ability: Effective Steaming Cabinet Tender Required: No Beliefs That Will Affect Care: None marital status: Current Living Situation: Spouse Other Information That Helps Us Care for You: No Feels Safe at Home: Yes Safety Concerns: Feels Safe At This Time Assistive Devices: None Review of Systems Review of Systems: All systems reviewed & are unremarkable except as noted in Subjective Physical Exam Constitutional: well developed and well nourished; no acute distress Respiratory: normal respiratory effort; no labored breathing and no retractions Auscultation: + diminished lung sounds (Bilateral) and + crackles (Scant crackles at the bases bilateral); no rhonchi and no wheezes Cardiovascular: Rate/Rhythm: regular rate and regular rhythm Heart Sounds: normal S1 and normal S2; no murmur Vessels: radial pulses present; no JVD and no carotid bruit Extremities: + edema (Trace ankle edema) Gastrointestinal (Abdomen): Inspection/Auscultation: abdomen normal to inspection and normal bowel sounds; abdomen not distended Percussion/Palpation: abdomen soft; abdomen nontender, no guarding and abdomen not rigid Neurologic: CN's II-XI intact bilaterally and moves all extremities; no focal motor deficits Results & Data ([facility]) Vital Signs (Past 12 Hours) Vital Signs Temp Pulse Pulse Resp BP BP Pulse Ox 06/18/22 07:58 36.4 C L 83 19 119/54 L 94 06/18/22 06:07 76 06/18/22 05:06 75 20 96 06/18/22 05:43 75 20 96 06/18/22 03:44 27 H 94 06/18/22 02:49 36.5 C 85 18 128/67 93 06/18/22 01:31 87 06/18/22 00:20 106 H 26 H 94 06/18/22 00:56 37.0 C 89 18 96 06/18/22 00:51 06/18/22 00:39 06/18/22 00:00 85 20 113/57 L 93 06/17/22 23:00 84 21 117/53 L 92 Pulse Ox O2 Del Method O2 Del Method O2 Flow Rate FiO2 06/18/22 07:58 Nasal Cannula 6 06/18/22 06:07 06/18/22 05:06 BiPAP 40 06/18/22 05:43 40 06/18/22 03:44 40 06/18/22 02:49 BiPAP 06/18/22 01:31 06/18/22 00:20 40 06/18/22 00:56 BiPAP 06/18/22 00:51 BiPAP 40 06/18/22 00:39 95 BiPAP 06/18/22 00:00 BiPAP 06/17/22 23:00 BiPAP Diagnostic Findings Preliminary review of resting 2D transthoracic echocardiogram demonstrates pre served LV systolic function with abnormal septal motion consistent with a left bundle branch block. The right ventricle size and function is normal. The TR jet is inadequate to calculate estimated pulmonary pressure. I dilated IVC suggest elevated right atrial filling pressure.
[2022-06-18] MEDS: ATORVASTATIN 20 MG TAB PO SCH (19:28)
[2022-06-19] MEDS: DOXYCYCLINE HYCLATE 100 MG in DEXTROSE 5% 100 ML IV SCH ×2 (02:13→14:03)
[2022-06-19] MEDS: AMPICILLIN/SULBACTAM SOD 1,500 MG in 0.9 % SODIUM CHLORIDE 100 ML IV SCH ×4 (05:04→23:08)
[2022-06-19] MEDS: ALBUT/IPRATROP 3MG/0.5MG NEB 3 ML VIAL NEB SCH ×4 (06:53→17:41)
[2022-06-19 07:22] LABS: Estimated Average Glucose 163 mg/dl; Hemoglobin A1C 7.3 % (4.5-5.6)
[2022-06-19] MEDS: hydroCHLOROthiazide 25 MG TAB PO SCH (07:59)
[2022-06-19] MEDS: lisinopril 40 MG TAB PO SCH (08:02)
[2022-06-19] MEDS: ACYCLOVIR 400 MG TAB PO SCH (08:02)
[2022-06-19] MEDS: FLUTICASONE/VILANTEROL 200/25MCG 14 PUFFS/INHALER INH SCH (08:02)
[2022-06-19] MEDS: predniSONE 20 MG TAB PO SCH (08:02)
[2022-06-19] MEDS: ENOXAPARIN INJ 40 MG/0.4 ML SYR SQ SCH (08:02)
[2022-06-19] MEDS: INSULIN ASPART PER UNIT SC SCH ×4 (08:04→20:56)
[2022-06-19 09:08] LABS: Hematocrit (blood only) 39.6 % (34.1-44.9); Hemoglobin 11.9 g/dl (12.0-16.0); Mean Corpuscular Hgb Conc 30.1 g/dL (32.0-36.0); Mean Corpuscular Volume 93.2 fL (80.0-100.0); Nucleated RBC # (auto) 0.02 K/uL (0-0); Nucleated RBC % (auto) 0.1 %; Platelet Count 306 K/uL (130-400); RDW Coefficient of Variation 15.8 % (11.5-14.5); RDW Standard Deviation 54.1 fL (36.4-46.3); Red Blood Count 4.25 M/uL (3.93-5.22); White Blood Count 13.81 K/ul (4.8-10.8)
[2022-06-19 09:33] LABS: BUN Creatinine Ratio 44.8 (10-20); Calcium 8.4 mg/dl (8.5-10.1); Est GFR (African American) 101.6 ml/min; Est GFR (Non-African American) 87.7 ml/min; Magnesium 2.3 mg/dl (1.7-2.4); Phosphorus 2.6 mg/dl (2.5-4.9); Potassium 4.5 mmol/L (3.5-5.1)
--- NOTE | 2022-06-19 11:32 | Hospitalist Progress Note ---
Date of Service June 19, 2022 Assessment & Plan (1) Acute respiratory failure with hypoxia and hypercarbia: (2) Pneumonia: (3) Acute exacerbation of chronic obstructive airways disease: Plan: Per PCP records from 06/16, patient has been having sinus congestion, rhinorrhea and MARTIN for 1 week Was hypoxic on room air at 81% during that PCP visit and reqired 3L in PCP office Recommendation was made for patient to go to ER via EMS but pt declined Currently reports only MARTIN and some ear fullness On presentation, pH was 7.29, pCO2 78, bicarb 34 CXR noted cardiomegaly, emphysema, pulm vasc congestion and arispace opacities in both lung bases. Required BIPAP on night of admission Currently on nasal cannula Wean oxygen to goal of 90-92% Continue Unasyn and doxycycline Based on labs, she has chronic hypercarbia Possible undiagnosed HELEN/OHS/disordered breathing Patient will need pulm f/u, PFT/Sleep study on discharge Continue nebs, prednisone Incentive spirometry and flutter (4) LBBB (left bundle branch block): (5) Elevated troponin I level: (6) Acute diastolic heart failure with preserved ejection fraction: Plan: Trop mildly elevated but flat Has LBBB on EKG Echo noted preserved EF and septal motion consistent with conduction abnormalities. Card eval and recommendation noted Got IV lasix 20mg x2 on admission. Discussed with [place] [employer] Operator. Will monitor for now Cards recommend outpatient ischemia workup Will get CXR in AM (7) Hypertension: Plan: Continue home lisinopril Monitor (8) Diabetes mellitus, type II: Plan: Hold home metformin ISS per protocol Carb controlled diet (9) Dyslipidemia: Plan: Continue home atorvastatin (10) DVT prophylaxis: Plan: Lovenox sq Admission and Anticipated Discharge Date Admission Date: June 17, 2022 Subjective Patient seen and examined Reports cough today and sinus congestion Reports ear fullness/pounding is resolved Denied chest pain Denied fevers, chills, nausea, abd pain, diarrhea Denied dysuria, freq, urgency Physical Exam Constitutional: + well hydrated and + obese; no acute distress Eyes: PERRL, conjunctivae normal, anicteric sclerae ENMT: external ear and nose normal, oropharynx normal Respiratory: normal respiratory effort; no respiratory distress Diminished breath sounds lung bases with scattered crackles Cardiovascular: Rate/Rhythm: regular rate and regular rhythm S1 S2 Gastrointestinal (Abdomen): normal bowel sounds, soft, nontender, no hepatosplenomegaly Musculoskeletal: +pedal edema Neurologic: PERRL, EOMI, accommodation nl, no face palsy, no dysarthria Psychiatric: A+Ox3, euthymic affect Results & Data Results & Data ([facility]) Vital Signs (Past 12 Hours) Vital Signs Temp Pulse Pulse Resp BP Pulse Ox O2 Del Method 06/19/22 11:18 82 20 92 Nasal Cannula 06/19/22 07:57 Nasal Cannula 06/19/22 06:03 60 06/19/22 07:11 36.4 C L 90 16 115/58 L 91 Nasal Cannula 06/19/22 06:53 85 18 98 Nasal Cannula 06/19/22 03:00 36.6 C 90 18 122/63 91 Oxymask 06/19/22 00:39 06/18/22 23:38 90 O2 Del Method O2 Flow Rate 06/19/22 11:18 6 06/19/22 07:57 6 06/19/22 06:03 06/19/22 07:11 6 06/19/22 06:53 6 06/19/22 03:00 6 06/19/22 00:39 Oxymask 06/18/22 23:38 Laboratory Results Abnormal lab results 06/18/22 06/18/22 06/18/22 Range/Units 05:37 16:31 21:25 WBC (4.8-10.8) K/ul Hgb (12.0-16.0) g/dl MCHC (32.0-36.0) g/dL RDW Std Deviation (36.4-46.3) fL RDW Coeff of Jesu (11.5-14.5) % Absolute Nucleated RBC (0-0) K/uL Sodium (136-145) mmol/L Chloride (98-107) mmol/L Carbon Dioxide (21-32) mmol/L BUN (6-23) mg/dl Creatinine (0.6-1.2) mg/dl BUN/Creatinine Ratio (10-20) Glucose (70-99(Fasting)) mg/dl POC Glucose 171 H 108 H (70-99) mg/dl Hemoglobin A1c 7.3 H (4.5-5.6) % Calcium (8.5-10.1) mg/dl 06/19/22 06/19/22 06/19/22 Range/Units 07:07 07:49 07:49 WBC 13.81 H (4.8-10.8) K/ul Hgb 11.9 L (12.0-16.0) g/dl MCHC 30.1 L (32.0-36.0) g/dL RDW Std Deviation 54.1 H (36.4-46.3) fL RDW Coeff of Jesu 15.8 H (11.5-14.5) % Absolute Nucleated RBC 0.02 H (0-0) K/uL Sodium 132 L (136-145) mmol/L Chloride 93 L (98-107) mmol/L Carbon Dioxide 35 H (21-32) mmol/L BUN 26 H (6-23) mg/dl Creatinine 0.58 L (0.6-1.2) mg/dl BUN/Creatinine Ratio 44.8 H (10-20) Glucose 109 H (70-99(Fasting)) mg/dl POC Glucose 114 H (70-99) mg/dl Hemoglobin A1c (4.5-5.6) % Calcium 8.4 L (8.5-10.1) mg/dl 06/19/22 Range/Units 11:10 WBC (4.8-10.8) K/ul Hgb (12.0-16.0) g/dl MCHC (32.0-36.0) g/dL RDW Std Deviation (36.4-46.3) fL RDW Coeff of Jesu (11.5-14.5) % Absolute Nucleated RBC (0-0) K/uL Sodium (136-145) mmol/L Chloride (98-107) mmol/L Carbon Dioxide (21-32) mmol/L BUN (6-23) mg/dl Creatinine (0.6-1.2) mg/dl BUN/Creatinine Ratio (10-20) Glucose (70-99(Fasting)) mg/dl POC Glucose 155 H (70-99) mg/dl Hemoglobin A1c (4.5-5.6) % Calcium (8.5-10.1) mg/dl
--- NOTE | 2022-06-19 11:42 | Cardiology Progress Note ---
Date of Service June 19, 2022 Assessment & Plan (1) Acute respiratory failure with hypoxia and hypercarbia: (2) Acute exacerbation of chronic obstructive airways disease: (3) Pneumonia: (4) Acute diastolic heart failure with preserved ejection fraction: (5) LBBB (left bundle branch block): (6) Elevated troponin I level: Plan 77-year-old female admitted with COPD exacerbation, community-acquired pneumonia and superimposed mild heart failure. Her respiratory status improved with diuretic therapy, corticosteroids, and antibiotics. She does not appear overtly volume overloaded on exam currently, however, chest x-ray with evidence of pulmonary vascular congestion and echocardiogram with indirect evidence of elevated right atrial filling pressure. She received 2 doses of IV furosemide since admission. We will hold off on additional diuretic therapy today pending ongoing blood pressure assessment. Troponin is mildly elevated, however flat and not indicative of acute plaque rupture event. Troponin is elevated likely secondary to acute respiratory insufficiency in the setting of hypoxia. LV function is preserved per echocardiogram with abnormal septal motion consistent with left bundle branch block. Ischemic evaluation will be performed in the outpatient setting. Continue outpatient doses of lisinopril and hydrochlorothiazide at this time. DVT prophylaxis with subcutaneous Lovenox. Admission and Anticipated Discharge Date Admission Date: June 17, 2022 Subjective Patient seen examined the bedside. Respiratory status mildly improved overnight. Fluid balance positive approximately 300 cc. Telemetry reveals sinus rhythm with heart rate ranging from 80-90 bpm with a left bundle branch block. Cough unchanged. Minimal sputum noted. Denies orthopnea or PND. No significant edema. Review of Systems Review of Systems: All systems reviewed & are unremarkable except as noted in Subjective Physical Exam Constitutional: well developed and well nourished; no acute distress Respiratory: normal respiratory effort; no labored breathing and no retractions Auscultation: + diminished lung sounds (Bilateral) and + crackles (Scant crackles at the bases bilateral); no rhonchi and no wheezes Cardiovascular: Rate/Rhythm: regular rate and regular rhythm Heart Sounds: normal S1 and normal S2; no murmur Vessels: radial pulses present; no JVD and no carotid bruit Extremities: + edema (Trace ankle edema) Gastrointestinal (Abdomen): Inspection/Auscultation: abdomen normal to inspection and normal bowel sounds; abdomen not distended Percussion/Palpation: abdomen soft; abdomen nontender, no guarding and abdomen not rigid Neurologic: CN's II-XI intact bilaterally and moves all extremities; no focal motor deficits Results & Data ([facility]) Vital Signs (Past 12 Hours) Vital Signs Temp Pulse Pulse Resp BP Pulse Ox O2 Del Method 06/19/22 11:18 82 20 92 Nasal Cannula 06/19/22 07:57 Nasal Cannula 06/19/22 06:03 60 06/19/22 07:11 36.4 C L 90 16 115/58 L 91 Nasal Cannula 06/19/22 06:53 85 18 98 Nasal Cannula 06/19/22 03:00 36.6 C 90 18 122/63 91 Oxymask 06/19/22 00:39 O2 Del Method O2 Flow Rate 06/19/22 11:18 6 06/19/22 07:57 6 06/19/22 06:03 06/19/22 07:11 6 06/19/22 06:53 6 06/19/22 03:00 6 06/19/22 00:39 Oxymask
[2022-06-19] MEDS ORDERED: LORATADINE 10 MG TAB PO ONE (13:45)
[2022-06-19 19:00] LABS: Base Excess VBG 10.1 mEq/L; HCO3 VBG 38 mmol/L; Oxygen Saturation VBG 97.1 %; PCO2 VBG 68 mmHg (38-50); PO2 VBG 82 mmHg; pH VBG 7.36 (7.36-7.41)
[2022-06-19] MEDS: ATORVASTATIN 20 MG TAB PO SCH (20:56)
[2022-06-19] MEDS ORDERED: SODIUM CHLORIDE 0.65% NA SOLN 45 ML (OCEAN) PRN (21:25)
[2022-06-19] MEDS ORDERED: MELATONIN 3 MG TAB PO PRN (23:47)
[2022-06-19] MEDS ORDERED: CALCIUM CARBONATE 500 MG CHEWABLE TAB PO PRN (23:47)
[2022-06-20] MEDS: DOXYCYCLINE HYCLATE 100 MG in DEXTROSE 5% 100 ML IV SCH ×2 (02:34→15:36)
[2022-06-20] MEDS: ALBUT/IPRATROP 3MG/0.5MG NEB 3 ML VIAL NEB SCH (05:30)
[2022-06-20] MEDS: AMPICILLIN/SULBACTAM SOD 1,500 MG in 0.9 % SODIUM CHLORIDE 100 ML IV SCH ×4 (05:49→23:27)
[2022-06-20] MEDS: ACYCLOVIR 400 MG TAB PO SCH (08:34)
[2022-06-20] MEDS: hydroCHLOROthiazide 25 MG TAB PO SCH (08:34)
[2022-06-20] MEDS: predniSONE 20 MG TAB PO SCH (08:34)
[2022-06-20] MEDS: lisinopril 40 MG TAB PO SCH (08:34)
[2022-06-20] MEDS: ENOXAPARIN INJ 40 MG/0.4 ML SYR SQ SCH (08:35)
[2022-06-20] MEDS: LORATADINE 10 MG TAB PO SCH (08:35)
[2022-06-20] MEDS: FLUTICASONE/VILANTEROL 200/25MCG 14 PUFFS/INHALER INH SCH (08:35)
[2022-06-20] MEDS: INSULIN ASPART PER UNIT SC SCH ×4 (08:35→21:09)
--- NOTE | 2022-06-20 09:33 | XRay Report ---
SINGLE VIEW CHEST CLINICAL HISTORY: Dyspnea. FINDINGS: An AP, portable, upright chest radiograph is compared to study gated 06/17/2022 and correla naun with chest CT dated 01/23/2015. The examination is degraded by portable technique and apical lordot ic positioning. The heart is enlarged noting atherosclerotic calcification of the thoracic aorta. The re is pulmonary vascular congestion. Emphysema and chronic interstitial thickening similar to previou s. Airspace consolidation is again seen at both lung bases. Small pleural effusions are suspected. No pneumothorax is seen. The skeletal structures are osteopenic. The bony thorax is grossly intact. IMPRESSION: 1. Cardiomegaly and emphysema with pulmonary vascular congestion. 2. Airspace consolidation is again seen at both lung bases, and is similar to 06/17/2022. Clinical co rrelation will be required and continued radiographic follow-up to resolution is recommended. 3. Suspect small pleural effusions. ACT 112: Negative or not required by law. Electronically signed by: Arik Riggs M.D. 06/20/2022 9:32 AM
--- NOTE | 2022-06-20 10:02 | Hospitalist Progress Note ---
Date of Service June 20, 2022 Assessment & Plan (1) Acute respiratory failure with hypoxia and hypercarbia: (2) Pneumonia: (3) Acute exacerbation of chronic obstructive airways disease: Plan: Per PCP records from 06/16, patient has been having sinus congestion, rhinorrhea and MARTIN for 1 week Was hypoxic on room air at 81% during that PCP visit and reqired 3L in PCP office Recommendation was made for patient to go to ER via EMS but pt declined Currently reports only MARTIN and some ear fullness On presentation, pH was 7.29, pCO2 78, bicarb 34 CXR noted cardiomegaly, emphysema, pulm vasc congestion and arispace opacities in both lung bases. Required BIPAP on night of admission Refused BIPAP last night Currently on nasal cannula 5L/min Wean oxygen to goal of 90-92% Continue Unasyn and doxycycline Based on labs on admission, she has chronic hypercarbia Possible undiagnosed HELEN/OHS/disordered breathing Will follow up Pulm eval May need CT lung Patient will need pulm f/u, PFT/Sleep study on discharge Continue nebs, prednisone Incentive spirometry and flutter Follow up labs today (4) LBBB (left bundle branch block): (5) Elevated troponin I level: (6) Acute diastolic heart failure with preserved ejection fraction: Plan: Trop mildly elevated but flat Has LBBB on EKG Echo noted preserved EF and septal motion consistent with conduction abnormalities. Card eval and recommendation noted Got IV lasix 20mg x2 on admission. Cards recommend outpatient ischemia workup Will follow up Cards recs (7) Hypertension: Plan: Continue home lisinopril/HCTZ Monitor (8) Diabetes mellitus, type II: Plan: Hold home metformin ISS per protocol Carb controlled diet (9) Dyslipidemia: Plan: Continue home atorvastatin (10) DVT prophylaxis: Plan: Lovenox sq PT/OT eval Admission and Anticipated Discharge Date Admission Date: June 17, 2022 Subjective Patient seen and examined Reports feeling better today. Reported minimal to mild cough this morning Denied chest pain Denied fevers, chills, nausea, abd pain, diarrhea Denied dysuria, freq, urgency Physical Exam Constitutional: + well hydrated and + obese; no acute distress Eyes: PERRL, conjunctivae normal, anicteric sclerae ENMT: external ear and nose normal, oropharynx normal Respiratory: normal respiratory effort; no respiratory distress diminished breath sounds lung bases Cardiovascular: Rate/Rhythm: regular rate and regular rhythm S1 S2 Gastrointestinal (Abdomen): normal bowel sounds, soft, nontender, no hepatosplenomegaly Musculoskeletal: Trace pedal edema Neurologic: PERRL, EOMI, accommodation nl, no face palsy, no dysarthria Psychiatric: A+Ox3, euthymic affect Results & Data Results & Data ([facility]) Vital Signs (Past 12 Hours) Vital Signs Temp Pulse Pulse Resp BP BP Pulse Ox 06/20/22 08:02 36.3 C L 97 H 18 147/73 H 90 06/20/22 05:30 86 18 95 06/20/22 02:37 36.4 C L 82 18 131/68 96 06/20/22 00:00 06/19/22 23:29 101 H 06/19/22 23:00 36.7 C 96 H 20 130/71 96 Pulse Ox O2 Del Method O2 Del Method O2 Flow Rate O2 Flow Rate 06/20/22 08:02 Nasal Cannula 5 06/20/22 05:30 Nasal Cannula 6 06/20/22 02:37 Nasal Cannula 6 06/20/22 00:00 95 High Flow Nasal Cannula 7 06/19/22 23:29 06/19/22 23:00 Nasal Cannula 9 Laboratory Results Abnormal lab results 06/19/22 06/19/22 06/19/22 Range/Units 16:26 18:31 20:12 VBG pCO2 68 H (38-50) mmHg POC Glucose 200 H 155 H (70-99) mg/dl 06/20/22 06/20/22 Range/Units 07:14 11:27 VBG pCO2 (38-50) mmHg POC Glucose 126 H 111 H (70-99) mg/dl
[2022-06-20] MEDS: FUROSEMIDE INJ 20 MG/2 ML VIAL IV SCH (12:47)
--- NOTE | 2022-06-20 12:52 | Pulmonary Consultation ---
Date of Consultation June 20, 2022 Assessment & Plan (1) COPD with emphysema: (2) Acute respiratory failure with hypoxia: (3) Acute respiratory failure with hypoxia and hypercarbia: Plan VBG 06/17/2022: 7.29/78/58 --> 06/11/2022: 7.36/68 2D echo 06/17/2022: EF 55-60%, mild concentric LVH, right ventricle normal in size, grade 1 diastolic dysfunction -- Acute hypoxic respiratory failure Multifactorial Underlying COPD playing its part Mildly elevated BNP BNP 129 COVID-19 PCR negative Influenza A/B negative -- COPD with emphysema On Advair at home Would like to change to Anoro --Ex-smoker [id number] smoking history Quit at the age of 67 Plan: Change Breo to Anoro. Would recommend discharging the patient on Anoro/Stiolto on a daily basis in place of Advair CT chest without contrast to look at the lung parenchyma Case was discussed with Dr. Nelson Please note the above document was generated using voice recognition software. It may contain grammatical, syntax or spelling errors.Any formal questions or concerns about the content, text or information contained within the body of this dictation should be directly addressed to the provider for clarification. 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 Denies any chest pain Denies any cough. No chest congestion. She is not usually on oxygen at home. Denies any fever or chills No headache, no nausea or vomiting. Social history: [id number] smoking history quit approximately 10 years ago Allergies Allergy/AdvReac Type Severity Reaction Status Date / Time Bactrim Allergy Unknown MOUTH SORES Verified 03/06/17 10:18 levofloxacin Allergy Unknown BUGS Verified 06/17/22 20:15 CRAWLING FACE sulfamethoxazole [Bactrim] Allergy Unknown MOUTH SORES Verified 06/17/22 20:15 trimethoprim [Bactrim] Allergy Unknown MOUTH SORES Verified 06/17/22 20:15 Home Medications Medication Instructions Recorded Confirmed Type acyclovir 800 mg tablet 800 mg PO QAM 06/17/22 06/17/22 History albuterol sulfate 90 mcg/actuation 2 puff inhalation Q4 PRN 06/17/22 06/17/22 History aerosol inhaler SOB,COUGH,WHEEZING atorvastatin 20 mg tablet 20 mg PO HS 06/17/22 06/17/22 History fluticasone propionate 230 2 puff inhalation BID 06/17/22 06/17/22 History mcg-salmeterol 21 mcg/actuation HFA inhaler (Advair HFA) hydrochlorothiazide 12.5 mg capsule 12.5 mg PO QAM 06/17/22 06/17/22 History lisinopril 20 mg tablet 40 mg PO QAM 06/17/22 06/17/22 History metformin 500 mg tablet,extended 1,000 mg PO QAM 06/17/22 06/17/22 History release 24 hr Patient History Medical History (Updated 06/20/22 @ 12:47 by Tariq Bear MD, [facility]) Acute respiratory failure COPD (chronic obstructive pulmonary disease) Diabetes mellitus, type II Dyslipidemia History of adenomatous polyp of colon Hypertension Surgical History Status post appendectomy Status post cholecystectomy Status post colonoscopy Social History Smoking Status: Former smoker Second Hand Exposure: No; Do You Dip or Chew Tobacco: No; Tobacco Cessation Education Requested by Patient: No Hx Alcohol Use: No Hx Substance Use: No Preferred Language: Yakut Communication Ability: Effective Gravel Screener Required: No Beliefs That Will Affect Care: None marital status: Current Living Situation: Spouse Other Information That Helps Us Care for You: No Feels Safe at Home: Yes Safety Concerns: Feels Safe At This Time Assistive Devices: None Review of Systems Review of Systems: All systems reviewed & are unremarkable except as noted in HPI & below Physical Exam Physical Exam: Constitutional: No acute distress HEENT: EOMI, PERRLA Respiratory system: Decreased air entry bilaterally, no wheeze, no rhonchi, no crackles CVS: S1-S2 positive, no murmurs or gallops Abdomen: Soft, nontender, nondistended, positive bowel sounds x4 Extremities: +2 pulses bilaterally radialis/ dorsalis pedis, no cyanosis, +1 pitting edema bilateral lower extremity Neuro: Awake alert oriented x3 Psych: Normal mood and affect G/U: No Baca Skin: no rashes, warm and dry Lymphatic: no cervical or axillary lymphadenopathy Results & Data Results & Data ([facility]) Vital Signs (Past 12 Hours) Vital Signs Temp Pulse Resp BP BP Pulse Ox O2 Del Method 06/20/22 12:35 36.6 C 86 16 112/66 92 Nasal Cannula 06/20/22 08:02 36.3 C L 97 H 18 147/73 H 90 Nasal Cannula 06/20/22 05:30 86 18 95 Nasal Cannula 06/20/22 02:37 36.4 C L 82 18 131/68 96 Nasal Cannula O2 Flow Rate 06/20/22 12:35 06/20/22 08:02 5 06/20/22 05:30 6 06/20/22 02:37 6 Laboratory Results 06/19/22 07:49 06/19/22 07:49 PG Care Time/CCT Total # of Minutes Spent Total Time Spent with Patient: Total time spent is greater than 50% in coordination of care (as documented) at patient's floor/unit and/or counseling patient: Coding Level of Care Code 45064 Initial Inpt Care Lvl 3 Diagnoses COPD with emphysema J43.9 Acute respiratory failure with hypoxia J96.01 Acute respiratory failure with hypoxia and hypercarbia J96.01; J96.02
[2022-06-20 13:04] LABS: Hematocrit (blood only) 39.1 % (34.1-44.9); Mean Corpuscular Hemoglobin 28.2 pg (25.0-34.0); Mean Corpuscular Hgb Conc 30.7 g/dL (32.0-36.0); Mean Platelet Volume 9.6 fL (9.4-12.3); Nucleated RBC # (auto) 0.02 K/uL (0-0); Nucleated RBC % (auto) 0.2 %; Platelet Count 307 K/uL (130-400); RDW Coefficient of Variation 15.7 % (11.5-14.5); RDW Standard Deviation 52.3 fL (36.4-46.3); Red Blood Count 4.25 M/uL (3.93-5.22); White Blood Count 10.44 K/ul (4.8-10.8)
[2022-06-20 13:31] LABS: BUN Creatinine Ratio 37.3 (10-20); Calcium 8.9 mg/dl (8.5-10.1); Creatinine Clr Calc Pharmacy 85.3 ml/min; Est GFR (Non-African American) 91.5 ml/min; Potassium 4.5 mmol/L (3.5-5.1)
--- NOTE | 2022-06-20 13:56 | Cardiology Progress Note ---
Date of Service June 20, 2022 Assessment & Plan (1) Acute respiratory failure with hypoxia and hypercarbia: (2) Acute exacerbation of chronic obstructive airways disease: (3) Pneumonia: (4) Acute diastolic heart failure with preserved ejection fraction: (5) LBBB (left bundle branch block): (6) Elevated troponin I level: Plan 77-year-old female admitted with COPD exacerbation, community-acquired pneumonia and superimposed mild heart failure. Recommend additional 20 mg of IV Lasix today. Continue hydrochlorothiazide as previously ordered. Follow daily weight, fluid balance, electrolytes, and oxygenation. Troponin is mildly elevated secondary to acute hypoxic respiratory failure. Not indicative of acute plaque rupture event. LV function is preserved per echocardiogram with abnormal septal motion consistent with left bundle branch block. Ischemic evaluation will be performed in the outpatient setting. DVT prophylaxis with subcutaneous Lovenox. Admission and Anticipated Discharge Date Admission Date: June 17, 2022 Subjective Patient seen examined the bedside. Feeling better today. Oxygen requirements improving. Denies chest pain or heaviness. Telemetry reveals sinus rhythm. No dysrhythmias. Denies orthopnea, or PND. Trace bilateral pedal edema unchanged. Fluid balance positive approximately 1 L. Daughter present at bedside. Offers no additional concerns/complaints. Review of Systems Review of Systems: All systems reviewed & are unremarkable except as noted in Subjective Physical Exam Constitutional: well developed and well nourished; no acute distress Respiratory: normal respiratory effort; no labored breathing and no retractions Auscultation: + diminished lung sounds (Bilateral) and + crackles (Scant crackles at the bases bilateral); no rhonchi and no wheezes Cardiovascular: Rate/Rhythm: regular rate and regular rhythm Heart Sounds: normal S1 and normal S2; no murmur Vessels: radial pulses present; no JVD and no carotid bruit Extremities: + edema (Trace ankle edema) Gastrointestinal (Abdomen): Inspection/Auscultation: abdomen normal to inspection and normal bowel sounds; abdomen not distended Percussion/Palpation: abdomen soft; abdomen nontender, no guarding and abdomen not rigid Neurologic: CN's II-XI intact bilaterally and moves all extremities; no focal motor deficits Results & Data ([facility]) Vital Signs (Past 12 Hours) Vital Signs Temp Pulse Resp BP BP Pulse Ox O2 Del Method 06/20/22 12:35 36.6 C 86 16 112/66 92 Nasal Cannula 06/20/22 08:02 36.3 C L 97 H 18 147/73 H 90 Nasal Cannula 06/20/22 05:30 86 18 95 Nasal Cannula 06/20/22 02:37 36.4 C L 82 18 131/68 96 Nasal Cannula O2 Flow Rate 06/20/22 12:35 06/20/22 08:02 5 06/20/22 05:30 6 06/20/22 02:37 6
--- NOTE | 2022-06-20 20:37 | CT Scan Report ---
CT OF THE CHEST WITHOUT IV CONTRAST CLINICAL HISTORY: Better lung assessment, hypoxic respiratory failure. COMPARISON STUDY: Chest CT January 23, 2015 and chest radiograph performed earlier today. CT DOSE: 441.29 mGycm TECHNIQUE: Axial images of the chest were obtained without IV contrast. Images were reviewed in the axial, sagittal, and coronal planes. IV contrast was not administered for this examination. Automat ed exposure control was utilized for the study. A dose lowering technique was utilized adhering to t he principles of ALARA. FINDINGS: No enlarged axillary, mediastinal or hilar lymph nodes are present. Moderate cardiomegaly is noted. There is moderate atherosclerotic plaque of the thoracic aorta. No pneumothorax is present. Trace bilateral pleural effusions are present. Segmental bilateral lower lobe airspace opacities fav or atelectasis. No central obstructing mass is noted. Advanced emphysema is present. No acute fractur e or suspicious lesion within the bony thorax is noted. Multiple hypodense hepatic lesions are simila r to prior exam. These favor cysts. IMPRESSION: 1. Segmental bilateral lower lobe airspace opacities which favor atelectasis. An infectious process i s considered less likely. 2. Trace bilateral pleural effusions. 3. Advanced emphysema. 4. Cardiomegaly. ACT 112: Negative or not required by law. Electronically signed by: Zachariah Bustos M.D. 06/20/2022 8:34 PM
[2022-06-20] MEDS: ATORVASTATIN 20 MG TAB PO SCH (21:10)
[2022-06-21] MEDS: DOXYCYCLINE HYCLATE 100 MG in DEXTROSE 5% 100 ML IV SCH ×2 (00:34→14:09)
[2022-06-21] MEDS: AMPICILLIN/SULBACTAM SOD 1,500 MG in 0.9 % SODIUM CHLORIDE 100 ML IV SCH ×4 (05:55→22:25)
[2022-06-21 07:36] LABS: Hematocrit (blood only) 40.2 % (34.1-44.9); Hemoglobin 12.1 g/dl (12.0-16.0); Mean Corpuscular Hemoglobin 27.9 pg (25.0-34.0); Mean Corpuscular Hgb Conc 30.1 g/dL (32.0-36.0); Mean Corpuscular Volume 92.8 fL (80.0-100.0); Mean Platelet Volume 9.5 fL (9.4-12.3); Platelet Count 274 K/uL (130-400); RDW Coefficient of Variation 15.3 % (11.5-14.5); RDW Standard Deviation 52.6 fL (36.4-46.3); Red Blood Count 4.33 M/uL (3.93-5.22); White Blood Count 9.65 K/ul (4.8-10.8)
[2022-06-21] MEDS: INSULIN ASPART PER UNIT SC SCH ×4 (07:51→21:02)
[2022-06-21 07:58] LABS: BUN Creatinine Ratio 32.6 (10-20); Calcium 8.9 mg/dl (8.5-10.1); Creatinine Clr Calc Pharmacy 92.9 ml/min; Est GFR (African American) 109.7 ml/min; Est GFR (Non-African American) 94.6 ml/min; Potassium 4.4 mmol/L (3.5-5.1)
[2022-06-21] MEDS: LORATADINE 10 MG TAB PO SCH (08:11)
[2022-06-21] MEDS: hydroCHLOROthiazide 25 MG TAB PO SCH (08:11)
[2022-06-21] MEDS: predniSONE 20 MG TAB PO SCH (08:11)
[2022-06-21] MEDS: ACYCLOVIR 400 MG TAB PO SCH (08:11)
[2022-06-21] MEDS: lisinopril 40 MG TAB PO SCH (08:11)
[2022-06-21] MEDS: UMECLIDINIUM/VILANTEROL 62.5/25MCG 7 PUFFS/INHALER INH SCH (08:12)
[2022-06-21] MEDS: FUROSEMIDE INJ 20 MG/2 ML VIAL IV SCH (08:12)
[2022-06-21] MEDS: ENOXAPARIN INJ 40 MG/0.4 ML SYR SQ SCH (08:12)
--- NOTE | 2022-06-21 09:05 | Pulmonology Progress Note ---
Date of Service June 21, 2022 Assessment & Plan (1) COPD with emphysema: (2) Acute respiratory failure with hypoxia: (3) Acute respiratory failure with hypoxia and hypercarbia: Plan VBG 06/17/2022: 7.29/78/58 --> 06/11/2022: 7.36/68 ABG 06/21/2022: 7.50/55/67 on 3 L 2D echo 06/17/2022: EF 55-60%, mild concentric LVH, right ventricle normal in size, grade [address] chest 06/20/2022 personally reviewed: Centrilobular and paraseptal emphysema appreciated bilaterally especially in the upper lobes Linear scarring of the inferior lobe of the lingula Dependent atelectasis vs Consolidative process appreciated bilateral lower lobes No mediastinal adenopathy -- Acute hypoxic respiratory failure Multifactorial Underlying COPD playing its part Mildly elevated BNP BNP 129 COVID-19 PCR negative Influenza A/B negative Procalcitonin negative -- COPD with emphysema On Advair at home Would like to change to Trelegy or Bevespi instead on discharge --Ex-smoker [id number] smoking history Quit at the age of 67 Plan: Continue with incentive spirometry Complete the course of antibiotics for total of 7 days Patient will likely need oxygen on discharge Case was discussed with Dr. Nance Please note the above document was generated using voice recognition software. It may contain grammatical, syntax or spelling errors.Any formal questions or concerns about the content, text or information contained within the body of this dictation should be directly addressed to the provider for clarification. Admission and Anticipated Discharge Date Admission Date: June 17, 2022 Subjective Patient seen and examined at bedside. No acute distress, no adverse events overnight Patient was saturating 87-88% on 3 L nasal cannula at the time of examination She stated she had just taken off the oxygen while she was eating Has been using incentive spirometry but has not been compliant with it Denies any chest pain, no shortness of breath Overall she says she is feeling better. Fair appetite. No nausea or vomiting Review of Systems Review of Systems: All systems reviewed & are unremarkable except as noted in Subjective Physical Exam Physical Exam: Constitutional: No acute distress HEENT: EOMI, PERRLA Respiratory system: Decreased air entry bilaterally, no wheeze, no rhonchi, positive crackles bilateral lower lobes CVS: S1-S2 positive, no murmurs or gallops Abdomen: Soft, nontender, nondistended, positive bowel sounds x4 Extremities: +2 pulses bilaterally radialis/ dorsalis pedis, no cyanosis, +1 pitting edema bilateral lower extremity Neuro: Awake alert oriented x3 Psych: Normal mood and affect G/U: No Baca Skin: no rashes, warm and dry Lymphatic: no cervical or axillary lymphadenopathy Results & Data Results & Data ([facility]) Vital Signs (Past 12 Hours) Vital Signs Temp Pulse Pulse Resp BP Pulse Ox O2 Del Method 06/21/22 02:45 36.6 C 79 16 137/69 93 Nasal Cannula 06/21/22 01:36 73 06/21/22 00:00 06/20/22 23:20 36.5 C 81 18 134/66 94 Nasal Cannula 06/20/22 21:53 Nasal Cannula O2 Del Method O2 Flow Rate O2 Flow Rate 06/21/22 02:45 3 06/21/22 01:36 06/21/22 00:00 Nasal Cannula 3 06/20/22 23:20 3 06/20/22 21:53 3 Laboratory Results 06/21/22 06:48 06/21/22 06:48 PG Care Time/CCT Total # of Minutes Spent Total Time Spent with Patient: Total time spent is greater than 50% in coordination of care (as documented) at patient's floor/unit and/or counseling patient: Coding Level of Care Code 69062 Subseq Hosp Care Lvl 2 Diagnoses COPD with emphysema J43.9 Acute respiratory failure with hypoxia J96.01 Acute respiratory failure with hypoxia and hypercarbia J96.01; J96.02
[2022-06-21 10:35] LABS: Allen Test Pos (Pos); Base Excess ABG 16.9 mEq/L (-9-1.8); HCO3 ABG 43 mmol/L (19-24); Oxygen Saturation ABG 96.4 % (90-95); PCO2 ABG 55 mmHg (35-46); PO2 ABG 67 mmHg (80-95)
--- NOTE | 2022-06-21 12:17 | Cardiology Progress Note ---
Date of Service June 21, 2022 Assessment & Plan (1) Acute respiratory failure with hypoxia and hypercarbia: (2) Acute exacerbation of chronic obstructive airways disease: (3) Pneumonia: (4) Acute diastolic heart failure with preserved ejection fraction: (5) LBBB (left bundle branch block): (6) Elevated troponin I level: Plan 77-year-old female admitted with COPD exacerbation, community-acquired pneumonia and superimposed mild heart failure. Recommend discontinue hydrochlorothiazide. Transition to Lasix 20 mg daily. Follow daily weight, fluid balance, electrolytes, and oxygenation. Troponin is mildly elevated secondary to acute hypoxic respiratory failure. Not indicative of acute plaque rupture event. LV function is preserved per echocardiogram with abnormal septal motion consistent with left bundle branch block. Ischemic evaluation will be performed in the outpatient setting. DVT prophylaxis with subcutaneous Lovenox. Admission and Anticipated Discharge Date Admission Date: June 17, 2022 Subjective Patient seen examined the bedside. Oxygen requirements improving. Fluid balance -565 mL. Blood pressure controlled. Denies chest pain or palpitations. Telemetry reveals sinus rhythm with heart rate ranged from 80-90 bpm. Short 6 beat romero of PSVT recorded. Review of Systems Review of Systems: All systems reviewed & are unremarkable except as noted in Subjective Physical Exam Constitutional: well developed and well nourished; no acute distress Respiratory: normal respiratory effort; no labored breathing and no retractions Auscultation: + diminished lung sounds (Bilateral); no crackles (Scant crackles at the bases bilateral), no rhonchi and no wheezes Cardiovascular: Rate/Rhythm: regular rate and regular rhythm Heart Sounds: normal S1 and normal S2; no murmur Vessels: radial pulses present; no JVD and no carotid bruit Extremities: + edema (Trace ankle edema) Gastrointestinal (Abdomen): Inspection/Auscultation: abdomen normal to inspection and normal bowel sounds; abdomen not distended Percussion/Palpation: abdomen soft; abdomen nontender, no guarding and abdomen not rigid Neurologic: CN's II-XI intact bilaterally and moves all extremities; no focal motor deficits Results & Data ([facility]) Vital Signs (Past 12 Hours) Vital Signs Temp Pulse Pulse Resp BP Pulse Ox O2 Del Method 06/21/22 09:00 82 06/21/22 09:00 Nasal Cannula 06/21/22 02:45 36.6 C 79 16 137/69 93 Nasal Cannula 06/21/22 01:36 73 O2 Flow Rate 06/21/22 09:00 06/21/22 09:00 3 06/21/22 02:45 3 06/21/22 01:36
--- NOTE | 2022-06-21 15:38 | Hospitalist Progress Note ---
Date of Service June 21, 2022 Assessment & Plan (1) Acute respiratory failure with hypoxia and hypercarbia: (2) Pneumonia: (3) Acute exacerbation of chronic obstructive airways disease: Plan: Per PCP records from 06/16, patient has been having sinus congestion, rhinorrhea and MARTIN for 1 week prior to admission. Was hypoxic on room air at 81% during that PCP visit and required 3L in PCP office Acute respiratory failure with hypoxia, hypercarbia Acute COPD exacerbation --CT Chest:Segmental bilateral lower lobe airspace opacities which favor atelectasis. An infectious process is considered less likely. Trace bilateral pleural effusions. Advanced emphysema. Cardiomegaly. -- COVID, Influenza screen negative Has been refusing BIPAP Advair changed to Anoro Continue incentive spirometer Continue antibiotics: Angysyn, Doxy to complete 7-day course Appreciate pulmonology input Continue nebs, Prednisone taper Needs outpatient PFTs Continue supplemental oxygen to keep saturations 88 to 92% Will need to step prior to discharge Procalcitonin pending Wean off of supplemental oxygen as able Continue pulmonary hygiene (4) LBBB (left bundle branch block): (5) Elevated troponin I level: (6) Acute diastolic heart failure with preserved ejection fraction: Plan: Mild Troponin elevation likely due to demand Ischemia LBBB Echo noted preserved EF and septal motion consistent with conduction abnormalities. Appreciate cardiology input IV Lasix transition to p.o. Lasix 20 mg daily Monitor I's and O's, daily weight, electrolytes Needs ischemic evaluation as outpatient And follow-up with cardiology upon discharge (7) Hypertension: Plan: Continue lisinopril HCTZ changed to lasix Monitor (8) Diabetes mellitus, type II: Plan: Hold home metformin ISS per protocol Monitor BGs (9) Dyslipidemia: Plan: Continue atorvastatin (10) DVT prophylaxis: Plan: Lovenox SQ CODE STATUS Full code Disposition PT OT prior to discharge Admission and Anticipated Discharge Date Admission Date: June 17, 2022 Subjective Patient is seen and examined at bedside States feeling better today Offers no new complaints Denies any chest pain, dyspnea, dizziness, nausea, abdominal pain Saturating well on 3 L supplemental oxygen Review of Systems Review of Systems: All systems reviewed & are unremarkable except as noted in Subjective Physical Exam Physical Exam: Physical Exam: Vitals signs as noted above General Appearance:Obese, no apparent distress Head: normocephalic, Atraumatic Eyes: normal inspection, EOMI Neck: supple, Trachea midline Respiratory/Chest: Decreased breath sounds, CTA, No accessory muscle use Cardiovascular: S1, S2, No murmur Abdomen/GI:Soft, Non tender, Bowel sounds present Extremities/Musculoskeletal:normal inspection, Trace edema Neurologic/Psych:AAOX3, grossly no focal neurological deficits Skin: normal color, warm Results & Data Results & Data ([facility]) Vital Signs (Past 12 Hours) Vital Signs Pulse O2 Del Method O2 Flow Rate 06/21/22 09:00 82 06/21/22 09:00 Nasal Cannula 3 Laboratory Results Short CBC 06/21/22 Range/Units 06:48 WBC 9.65 (4.8-10.8) K/ul Hgb 12.1 (12.0-16.0) g/dl Hct 40.2 (34.1-44.9) % Plt Count 274 (130-400) K/uL BMP 06/21/22 06:48 Sodium 135 L Potassium 4.4 Chloride 94 L Carbon Dioxide 37 H BUN 15 Creatinine 0.46 L Glucose 99 Calcium 8.9
[2022-06-21] MEDS: ATORVASTATIN 20 MG TAB PO SCH (20:51)
[2022-06-22] MEDS: DOXYCYCLINE HYCLATE 100 MG CAP PO SCH ×2 (01:19→13:30)
[2022-06-22] MEDS: AMPICILLIN/SULBACTAM SOD 1,500 MG in 0.9 % SODIUM CHLORIDE 100 ML IV SCH ×2 (05:00→12:14)
[2022-06-22] MEDS: ENOXAPARIN INJ 40 MG/0.4 ML SYR SQ SCH (07:36)
[2022-06-22] MEDS: ACYCLOVIR 400 MG TAB PO SCH (07:39)
[2022-06-22] MEDS: LORATADINE 10 MG TAB PO SCH (07:39)
[2022-06-22] MEDS: lisinopril 40 MG TAB PO SCH (07:39)
[2022-06-22] MEDS: UMECLIDINIUM/VILANTEROL 62.5/25MCG 7 PUFFS/INHALER INH SCH (07:40)
[2022-06-22 07:56] LABS: BUN Creatinine Ratio 31.4 (10-20); Calcium 9.2 mg/dl (8.5-10.1); Est GFR (Non-African American) 91.5 ml/min; Potassium 3.8 mmol/L (3.5-5.1)
[2022-06-22] MEDS: INSULIN ASPART PER UNIT SC SCH ×2 (08:02→11:54)
[2022-06-22] MEDS ORDERED: FUROSEMIDE 20 MG TAB PO SCH (09:00)
--- NOTE | 2022-06-22 12:45 | Hospitalist Progress Note ---
Date of Service June 22, 2022 Assessment & Plan (1) Acute respiratory failure with hypoxia and hypercarbia: (2) Pneumonia: (3) Acute exacerbation of chronic obstructive airways disease: Plan: Per PCP records from 06/16, patient has been having sinus congestion, rhinorrhea and MARTIN for 1 week prior to admission. Was hypoxic on room air at 81% during that PCP visit and required 3L in PCP office Acute respiratory failure with hypoxia, hypercarbia Acute COPD exacerbation Pneumonia --CT Chest:Segmental bilateral lower lobe airspace opacities which favor atelectasis. An infectious process is considered less likely. Trace bilateral pleural effusions. Advanced emphysema. Cardiomegaly. -- COVID, Influenza screen negative Has been refusing BIPAP Continue incentive spirometer Continue antibiotics: Unasyn, Doxy to complete 10-day course Appreciate pulmonology input Continue nebs, Prednisone taper Needs outpatient PFTs Continue supplemental oxygen to keep saturations 88 to 92% Will need to step prior to discharge Procalcitonin Normal Continue pulmonary hygiene 2 step: Needs 2 liter at rest and 5 liter with activity Plan to change Advair to Trelegy Ellipta upon discharge Needs follow-up with pulmonology upon discharge (4) LBBB (left bundle branch block): (5) Elevated troponin I level: (6) Acute diastolic heart failure with preserved ejection fraction: Plan: Mild Troponin elevation likely due to demand Ischemia LBBB Echo noted preserved EF and septal motion consistent with conduction abnormalities. Appreciate cardiology input IV Lasix transition to p.o. Lasix 20 mg daily Monitor I's and O's, daily weight, electrolytes Needs ischemic evaluation as outpatient Needs follow-up with cardiology upon discharge (7) Hypertension: Plan: Continue lisinopril HCTZ changed to lasix Monitor (8) Diabetes mellitus, type II: Plan: Hold home metformin ISS per protocol Monitor BGs (9) Dyslipidemia: Plan: Continue atorvastatin (10) DVT prophylaxis: Plan: Lovenox SQ CODE STATUS Full code Disposition Home with Home Health Admission and Anticipated Discharge Date Admission Date: June 17, 2022 Subjective Patient is seen and examined at bedside Doing well today No new complaints Discussed with patient's daughter at bedside Also discussed with cardiology and pulmonology today Denies any chest pain, dyspnea, dizziness, nausea, abdominal pain Plan for 2 step today Review of Systems Review of Systems: All systems reviewed & are unremarkable except as noted in Subjective Physical Exam Physical Exam: Physical Exam: Vitals signs as noted above General Appearance:Obese, no apparent distress Head: normocephalic, Atraumatic Eyes: normal inspection, EOMI Neck: supple, Trachea midline Respiratory/Chest: Decreased breath sounds, CTA, No accessory muscle use Cardiovascular: S1, S2, No murmur Abdomen/GI:Soft, Non tender, Bowel sounds present Extremities/Musculoskeletal:normal inspection, Trace edema Neurologic/Psych:AAOX3, grossly no focal neurological deficits Skin: normal color, warm Results & Data Results & [facility] ([facility]) Vital Signs (Past 12 Hours) Vital Signs Temp Pulse Pulse Resp BP BP Pulse Ox 06/22/22 11:16 36.6 C 87 18 126/68 89 L 06/22/22 11:16 92 06/22/22 08:00 79 06/22/22 08:00 06/22/22 07:41 36.8 C 78 17 120/67 95 06/22/22 04:16 36.7 C 77 16 117/69 94 O2 Del Method O2 Flow Rate 06/22/22 11:16 Nasal Cannula 2 06/22/22 11:16 Nasal Cannula 3 06/22/22 08:00 06/22/22 08:00 Nasal Cannula 3 06/22/22 07:41 Nasal Cannula 3 06/22/22 04:16 Nasal Cannula 3.0 Laboratory Results [facility] 06/22/22 06:58 Sodium 136 Potassium 3.8 Chloride 95 L Carbon Dioxide 38 H BUN 16 Creatinine 0.51 L Glucose 105 H Calcium 9.2
--- NOTE | 2022-06-22 13:22 | Pulmonology Progress Note ---
Date of Service June 22, 2022 Assessment & Plan (1) COPD with emphysema: (2) Acute respiratory failure with hypoxia: (3) Acute respiratory failure with hypoxia and hypercarbia: Plan VBG 06/17/2022: 7.29/78/58 --> 06/11/2022: 7.36/68 ABG 06/21/2022: 7.50/55/67 on 3 L 2D echo 06/17/2022: EF 55-60%, mild concentric LVH, right ventricle normal in size, grade [address] chest 06/20/2022 personally reviewed: Centrilobular and paraseptal emphysema appreciated bilaterally especially in the upper lobes Linear scarring of the inferior lobe of the lingula Dependent atelectasis vs Consolidative process appreciated bilateral lower lobes No mediastinal adenopathy -- Acute hypoxic respiratory failure Multifactorial Underlying COPD playing its part Mildly elevated BNP BNP 129 COVID-19 PCR negative Influenza A/B negative Procalcitonin negative -- COPD with emphysema On Advair at home Would like to change to Trelegy or Bevespi instead on discharge --Ex-smoker [id number] smoking history Quit at the age of 67 Plan: Continue with incentive spirometry Complete the course of antibiotics for total of 7 days Patient will likely need oxygen on discharge Discharge on Trelegy inhaler to be used on a daily basis, discontinue Advair Outpatient pulmonary follow-up, patient will benefit from pulmonary rehab Case was discussed with Dr. Nance Please note the above document was generated using voice recognition software. It may contain grammatical, syntax or spelling errors.Any formal questions or concerns about the content, text or information contained within the body of t his dictation should be directly addressed to the provider for clarification. Admission and Anticipated Discharge Date Admission Date: June 17, 2022 Subjective Patient seen and examined at bedside. No acute distress, no adverse events overnight. Patient was saturating 95% on 3 L nasal cannula. I went down to 2 L Denies any chest pain, no shortness of breath Patient's daughter was also in the room at the time of examination Denies any headache, no nausea vomiting Fair appetite Review of Systems Review of Systems: All systems reviewed & are unremarkable except as noted in Subjective Physical Exam Physical Exam: Constitutional: No acute distress HEENT: EOMI, PERRLA Respiratory system: Decreased air entry bilaterally, no wheeze, no rhonchi, positive crackles bilateral lower lobes CVS: S1-S2 positive, no murmurs or gallops Abdomen: Soft, nontender, nondistended, positive bowel sounds x4 Extremities: +2 pulses bilaterally radialis/ dorsalis pedis, no cyanosis, +1 pitting edema bilateral lower extremity Neuro: Awake alert oriented x3 Psych: Normal mood and affect G/U: No [place] Skin: no rashes, warm and dry Lymphatic: no cervical or axillary lymphadenopathy Results & Data Results & Data ([facility]) Vital Signs (Past 12 Hours) Vital Signs Temp Pulse Pulse Pulse Pulse Pulse Pulse 06/22/22 12:55 73 105 H 101 H 102 H 103 H 06/22/22 11:16 36.6 C 06/22/22 11:16 06/22/22 08:00 79 06/22/22 08:00 06/22/22 07:41 36.8 C 06/22/22 04:16 36.7 C Pulse Pulse Pulse Resp Resp Resp Resp 06/22/22 12:55 82 94 H 18 20 20 06/22/22 11:16 87 18 06/22/22 11:16 06/22/22 08:00 06/22/22 08:00 06/22/22 07:41 78 17 06/22/22 04:16 77 16 Resp Resp Resp Resp BP BP Pulse Ox 06/22/22 12:55 20 20 18 18 06/22/22 11:16 126/68 89 L 06/22/22 11:16 92 06/22/22 08:00 06/22/22 08:00 06/22/22 07:41 120/67 95 06/22/22 04:16 117/69 94 Pulse Ox Pulse Ox Pulse Ox Pulse Ox Pulse Ox Pulse Ox Pulse Ox 06/22/22 12:55 90 85 L 87 L 90 85 L 90 86 L 06/22/22 11:16 06/22/22 11:16 06/22/22 08:00 06/22/22 08:00 06/22/22 07:41 06/22/22 04:16 O2 Del Method O2 Flow Rate O2 Flow Rate O2 Flow Rate O2 Flow Rate O2 Flow Rate O2 Flow Rate 06/22/22 12:55 2 3 4 5 2 06/22/22 11:16 Nasal Cannula 2 06/22/22 11:16 Nasal Cannula 3 06/22/22 08:00 06/22/22 08:00 Nasal Cannula 3 06/22/22 07:41 Nasal Cannula 3 06/22/22 04:16 Nasal Cannula 3.0 O2 Flow Rate 06/22/22 12:55 2 06/22/22 11:16 06/22/22 11:16 06/22/22 08:00 06/22/22 08:00 06/22/22 07:41 06/22/22 04:16 Laboratory Results 06/21/22 06:48 06/22/22 06:58 PG Care Time/CCT Total # of Minutes Spent Total Time Spent with Patient: Total time spent is greater than 50% in coordination of care (as documented) at patient's floor/unit and/or counseling patient: Coding Level of Care Code 52612 Subseq Hosp Care Lvl 2 Diagnoses COPD with emphysema J43.9 Acute respiratory failure with hypoxia J96.01 Acute respiratory failure with hypoxia and hypercarbia J96.01; J96.02
--- NOTE | 2022-06-22 13:30 | Discharge Summary ---
Date of Service June 22, 2022 Admission HPI Per Admitting Provider CHIEF COMPLAINT: Shortness of breath. HISTORY OF PRESENT ILLNESS: A 77-year-old female with past medical history significant for type 2 diabetes, hyperlipidemia, COPD, hypertension, hepatic steatosis, history of osteoarthritis of multiple joints, history of shingles in the eyes and she takes acyclovir when it flares up, currently taking it, presents with shortness of breath, has been going on for 1 week. She went to PCP's office yesterday for routine visit and found to be hypoxic and advised to come to the EMS, but the patient wanted to go with family members, but apparently she did not come and today she comes with shortness of breath and oxygen sats were 76-78% when she came in and placed on BiPAP. She is saturating in the high 90s on BiPAP, resting comfortably. She states she did not have cough, but after nebs treatment in the ER, she has some phlegm coming out. Denies any chest pain, no headache. Right ear is somewhat groggy. No runny nose, no sore throat. No fevers, no nausea, no vomiting, no abdominal pain. Normal bowel and bladder movements. She also has some swelling in the legs going on for one to two weeks, some dizziness going on for the last one to two weeks. Admission Exam Per Admitting Provider PHYSICAL EXAMINATION: GENERAL: The patient is obese, not in acute distress. VITAL SIGNS: Temperature 36.8, pulse 96, respiratory rate 20, blood pressure 150/75, oxygen 97% on BiPAP. HEENT: Pupils equal, round and reactive to light. Head is atraumatic. NECK: No JVD or neck masses. CARDIOVASCULAR: S1 and S2 heard. Regular rate and rhythm. No murmur, no gallop. RESPIRATORY SYSTEM: Normal AP diameter. No accessory muscle use. Bibasilar crackles or rhonchi heard. ABDOMEN: Soft, bowel sounds present, nontender, no distention. CENTRAL NERVOUS SYSTEM: Cranial nerves II through XII grossly intact, nonfocal. EXTREMITIES: Lower extremity, +2 pedal edema present, slightly erythematous changes seen. Principal Diagnosis Acute respiratory failure with hypoxia, hypercarbia Acute COPD exacerbation Pneumonia Acute diastolic heart failure Discharge Data Allergies Allergy/AdvReac Type Severity Reaction Status Date / Time Bactrim Allergy Unknown MOUTH SORES Verified 03/06/17 10:18 levofloxacin Allergy Unknown BUGS Verified 06/17/22 20:15 CRAWLING FACE sulfamethoxazole [Bactrim] Allergy Unknown MOUTH SORES Verified 06/17/22 20:15 trimethoprim [Bactrim] Allergy Unknown MOUTH SORES Verified 06/17/22 20:15 Consultations 06/17/22 20:49 ED Decision to Admit Stat 06/18/22 08:00 Consult Cardiology Routine 06/19/22 18:04 Consult Pulmonology Routine Procedures Performed Laboratory Results WBC 9.65 K/ul (4.8-10.8) 06/21/22 06:48 RBC 4.33 M/uL (3.93-5.22) 06/21/22 06:48 Hgb 12.1 g/dl (12.0-16.0) 06/21/22 06:48 Hct 40.2 % (34.1-44.9) 06/21/22 06:48 MCV 92.8 fL (80.0-100.0) 06/21/22 06:48 MCH 27.9 pg (25.0-34.0) 06/21/22 06:48 MCHC 30.1 g/dL (32.0-36.0) L 06/21/22 06:48 RDW Std Deviation 52.6 fL (36.4-46.3) H 06/21/22 06:48 RDW Coeff of Jesu 15.3 % (11.5-14.5) H 06/21/22 06:48 Plt Count 274 K/uL (130-400) 06/21/22 06:48 MPV 9.5 fL (9.4-12.3) 06/21/22 06:48 Immature Gran % (Auto) 0.6 % 06/18/22 05:37 Neut % (Auto) 90.5 % 06/18/22 05:37 Lymph % (Auto) 6.4 % 06/18/22 05:37 Hudson % (Auto) 2.3 % 06/18/22 05:37 Eos % (Auto) 0.0 % 06/18/22 05:37 Baso % (Auto) 0.2 % 06/18/22 05:37 Neut # (Auto) 7.59 K/uL (1.4-6.5) H 06/18/22 05:37 Lymph # (Auto) 0.54 K/uL (1.2-3.4) L 06/18/22 05:37 Hudson # (Auto) 0.19 K/uL (0.24-0.82) L 06/18/22 05:37 Eos # (Auto) 0.00 K/uL (0-0.50) 06/18/22 05:37 Baso # (Auto) 0.02 K/uL (0-0.2) 06/18/22 05:37 Immature Gran # (Auto) 0.05 K/uL (0.00-0.02) H 06/18/22 05:37 Absolute Nucleated RBC 0.02 K/uL (0-0) H 06/20/22 12:43 Nucleated RBC % (auto) 0.2 % 06/20/22 12:43 PT 10.9 Seconds (9.0-12.0) 06/17/22 19:25 INR 1.0 (0.9-1.1) 06/17/22 19:25 APTT 23.5 Seconds (21.0-31.0) 06/17/22 19:25 PTT Ratio 0.9 06/17/22 19:25 ABG pH 7.50 (7.35-7.45) H 06/21/22 10:27 ABG pCO2 55 mmHg (35-46) H 06/21/22 10:27 ABG pO2 67 mmHg (80-95) L 06/21/22 10:27 ABG HCO3 43 mmol/L (19-24) H 06/21/22 10:27 ABG O2 Saturation 96.4 % (90-95) H 06/21/22 10:27 ABG Base Excess 16.9 mEq/L (-9-1.8) H 06/21/22 10:27 Gagan Test Pos (Pos) 06/21/22 10:27 VBG pH 7.36 (7.36-7.41) 06/19/22 18:31 VBG pCO2 68 mmHg (38-50) H 06/19/22 18:31 VBG pO2 82 mmHg 06/19/22 18:31 VBG HCO3 38 mmol/L 06/19/22 18:31 VBG O2 Saturation 97.1 % 06/19/22 18:31 VBG Base Excess 10.1 mEq/L 06/19/22 18:31 Oxygen Given 3L 06/21/22 10:27 Sodium 136 mmol/L (136-145) 06/22/22 06:58 Potassium 3.8 mmol/L (3.5-5.1) 06/22/22 06:58 Chloride 95 mmol/L (98-107) L 06/22/22 06:58 Carbon Dioxide 38 mmol/L (21-32) H 06/22/22 06:58 Anion Gap 3 (3-11) 06/22/22 06:58 BUN 16 mg/dl (6-23) 06/22/22 06:58 Creatinine 0.51 mg/dl (0.6-1.2) L 06/22/22 06:58 Est Cr Clr Drug Dosing 84.0 ml/min 06/22/22 06:58 Est GFR ( Amer) 106.0 ml/min 06/22/22 06:58 Est GFR (Non-Af Amer) 91.5 ml/min 06/22/22 06:58 BUN/Creatinine Ratio 31.4 (10-20) H 06/22/22 06:58 Glucose 105 mg/dl (70-99(Fasting)) H 06/22/22 06:58 POC Glucose 109 mg/dl (70-99) H 06/22/22 11:08 Estimat Average Glucose 163 mg/dl 06/18/22 05:37 Hemoglobin A1c 7.3 % (4.5-5.6) H 06/18/22 05:37 Calcium 9.2 mg/dl (8.5-10.1) 06/22/22 06:58 Phosphorus 2.6 mg/dl (2.5-4.9) 06/19/22 07:49 Magnesium 2.3 mg/dl (1.7-2.4) 06/19/22 07:49 Total Bilirubin 0.5 mg/dl (0.2-1.0) 06/17/22 19:25 AST 18 U/L (13-39) 06/17/22 19:25 ALT 17 U/L (7-52) 06/17/22 19:25 Alkaline Phosphatase 61 U/L (34-104) 06/17/22 19:25 Troponin I High Sens 10.6 pg/ml (0-14) 06/18/22 16:48 B-Natriuretic Peptide 129 pg/ml (0-100) H 06/17/22 19:25 Total Protein 7.3 gm/dl (6.0-8.3) 06/17/22 19:25 Albumin 4.1 gm/dl (3.4-5.0) 06/17/22 19:25 Globulin 3.2 gm/dl (2.5-4.0) 06/17/22 19:25 Albumin/Globulin Ratio 1.3 (0.9-2) 06/17/22 19:25 Procalcitonin < 0.05 ng/ml (0-0.5) 06/22/22 06:58 SARS-CoV-2 (PCR) NEGATIVE (Negative) 06/17/22 19:30 Influenza Type A (PCR) Negative (Neg) 06/17/22 19:30 Influenza Type B (PCR) Negative (Neg) 06/17/22 19:30 RSV (RT-PCR) Negative (Neg) 06/17/22 19:30 Impressions Venous Doppler Study 06/17/22 19:12 ULTRASOUND LEFT LOWER EXTREMITY VENOUS CLINICAL HISTORY: Left leg swelling. Hypoxia. COMPARISON STUDY: No priors. TECHNIQUE: Real-time, grayscale, and color Doppler sonography of the deep veins of the left lower extremity was performed from the inguinal crease to the calf. Compression and augmentation were utilized. FINDINGS: There is no sonographic evidence of deep venous thrombosis identified in the left lower extremity. The common femoral, superficial femoral, and popliteal veins are patent and normally compressible. The greater saphenous vein and the profunda femoris vein at the junction with the common femoral vein are clear. The visualized calf veins are patent. IMPRESSION: There is no sonographic evidence of deep venous thrombosis identified in the left lower extremity. ACT 112: Negative or not required by law. Electronically signed by: Arik Riggs M.D. 06/17/2022 8:39 PM Chest X-Ray 06/20/22 07:00 SINGLE VIEW CHEST CLINICAL HISTORY: Dyspnea. FINDINGS: An AP, portable, upright chest radiograph is compared to study gated 06/17/2022 and correlated with chest CT dated 01/23/2015. The examination is degraded by portable technique and apical lordotic positioning. The heart is enlarged noting atherosclerotic calcification of the thoracic aorta. There is pulmonary vascular congestion. Emphysema and chronic interstitial thickening similar to previous. Airspace consolidation is again seen at both lung bases. Small pleural effusions are suspected. No pneumothorax is seen. The skeletal structures are osteopenic. The bony thorax is grossly intact. IMPRESSION: 1. Cardiomegaly and emphysema with pulmonary vascular congestion. 2. Airspace consolidation is again seen at both lung bases, and is similar to 06/17/2022. Clinical correlation will be required and continued radiographic follow-up to resolution is recommended. 3. Suspect small pleural effusions. ACT 112: Negative or not required by law. Electronically signed by: Arik Riggs M.D. 06/20/2022 9:[address] 06/20/22 15:55 CT OF THE CHEST WITHOUT IV CONTRAST CLINICAL HISTORY: Better lung assessment, hypoxic respiratory failure. COMPARISON STUDY: Chest CT January 23, 2015 and chest radiograph performed earlier today. CT DOSE: 441.29 mGycm TECHNIQUE: Axial images of the chest were obtained without IV contrast. Images were reviewed in the axial, sagittal, and coronal planes. IV contrast was not administered for this examination. Automated exposure control was utilized for the study. A dose lowering technique was utilized adhering to the principles of ALARA. FINDINGS: No enlarged axillary, mediastinal or hilar lymph nodes are present. Moderate cardiomegaly is noted. There is moderate atherosclerotic plaque of the thoracic aorta. No pneumothorax is present. Trace bilateral pleural effusions are present. Segmental bilateral lower lobe airspace opacities favor atelectasis. No central obstructing mass is noted. Advanced emphysema is present. No acute fracture or suspicious lesion within the bony thorax is noted. Multiple hypodense hepatic lesions are similar to prior exam. These favor cysts. IMPRESSION: 1. Segmental bilateral lower lobe airspace opacities which favor atelectasis. An infectious process is considered less likely. 2. Trace bilateral pleural effusions. 3. Advanced emphysema. 4. Cardiomegaly. ACT 112: Negative or not required by law. Electronically signed by: Zachariah Bustos M.D. 06/20/2022 8:34 PM Ordered Studies 06/17/22 19:12 US venous doppler LE LT Stat 06/20/22 15:55 CT chest diagnostic wo con Urgent Hospital Course (1) Acute respiratory failure with hypoxia and hypercarbia: (2) Pneumonia: (3) Acute exacerbation of chronic obstructive airways disease: Per PCP records from 06/16, patient has been having sinus congestion, rhinorrhea and MARTIN for 1 week prior to admission. Was hypoxic on room air at 81% during that PCP visit and required 3L in PCP office Acute respiratory failure with hypoxia, hypercarbia Acute COPD exacerbation Pneumonia --CT Chest:Segmental bilateral lower lobe airspace opacities which favor atelectasis. An infectious process is considered less likely. Trace bilateral pleural effusions. Advanced emphysema. Cardiomegaly. -- COVID, Influenza screen negative Has been refusing BIPAP Continue incentive spirometer Continue antibiotics: Unasyn, Doxy to complete 10-day course Appreciate pulmonology input Continue nebs, Prednisone taper Needs outpatient PFTs Continue supplemental oxygen to keep saturations 88 to 92% Will need to step prior to discharge Procalcitonin Normal Continue pulmonary hygiene 2 step: Needs 2 liter at rest and 5 liter with activity Plan to change Advair to Trelegy Ellipta upon discharge Needs follow-up with pulmonology upon discharge (4) LBBB (left bundle branch block): (5) Elevated troponin I level: (6) Acute diastolic heart failure with preserved ejection fraction: Mild Troponin elevation likely due to demand Ischemia LBBB Echo noted preserved EF and septal motion consistent with conduction abnormalities. Appreciate cardiology input IV Lasix transition to p.o. Lasix 20 mg daily Monitor I's and O's, daily weight, electrolytes Needs ischemic evaluation as outpatient Needs follow-up with cardiology upon discharge (7) Hypertension: Continue lisinopril HCTZ changed to lasix Monitor (8) Diabetes mellitus, type II: Hold home metformin ISS per protocol Monitor BGs (9) Dyslipidemia: Continue atorvastatin (10) DVT prophylaxis: Lovenox SQ CODE STATUS Full code Disposition Home with Home Health Total Time Total Time Spent Total Time Spent (In Minutes): 45 minutes Discharge Plan Discharge Items Patient Disposition: Home - Home Health Services Reason For Visit: SOB Discharge Diagnosis: Acute respiratory failure with hypoxia, hypercarbia Acute COPD exacerbation Pneumonia Acute diastolic heart failure Activity: Per Instructions section Exercise/Sports: Wait until after follow-up appointment Non-emergency contact: Primary Care Provider, Tub Wash Operator and Cupola Patcher Helper Call non-emergency contact if: you have any medication questions, your symptoms worsen and your pain is concerning for you Follow-up/Referrals: Yamileth Reyes MD [Primary Care Provider] - (Date & Time 06/28/2022 11:20 AM Provider Yamileth Reyes MD Department Family Medicine [facility] ) Diet: Carb Consistent or DM2 and Heart Healthy Diet Texture: Easy to Chew Addtl Attending Provider Instructions: Follow-up with your primary care physician on 06/28/2022 11:20 AM Follow-up with your switch operators supervisor as outpatient in 2-4 weeks Follow-up with your dulser in 2-4 weeks --Use Oxygen via nasal Cannula: 2 liters at rest and 5 liters with activity as advised --Complete the antibiotic course as prescribed for Pneumonia as suggested by your Cupola Patcher Helper Seek immediate medical attention if your symptoms reoccur or worsen Please take all medications as instructed on discharge list below. Please call if you have any questions or problems. You can reach a [facility] hospitalist on duty at [facility] 24 hours a day by calling [phone] Call your Primary Care doctor if any of the following symptoms or problems start or get worse: * Shortness of breath or difficulty breathing * Wake up at night short of breath * Chest pain * Cough * Swelling of your hands, feet, or legs * More fatigued or tired with your normal activity * Palpitations - sudden fast heart beats WEIGHT * Weigh yourself every morning after using the bathroom. * Use the same scale. * Wear the same amount of clothing. * Write your weight down on a chart. * Call your Primary Care doctor if you gain more than 2-3 pounds in 1-2 days. MEDICATIONS * Use this discharge instruction sheet for medication instructions. * Take your medications at the time your doctor ordered. * Do not skip a dose of your medicines. * If you miss a dose of medicine, take it as soon as possible, but DO NOT DOUBLE A DOSE. * Read your medicine information when you get home. * Know all of the side effects of your medicine. If in doubt, ask your pharmacist * Call your Primary Care doctor's office if you have any side effects. * Be sure all of your doctors know what medicine and herbs you take (including cold, flu, and herbal medicine). Take the following with you to your follow-up doctor appointments: * Weight Chart * Medication List * List of questions Do not drink excessive alcohol, beer or wine. Pending Studies at Discharge: No Stand-Alone Forms: [facility], Smoking Cessation Medications and DC Order Prescriptions: New doxycycline hyclate 100 mg Capsule 100 mg PO Q12H Qty: 11 0RF furosemide 20 mg Tablet 20 mg PO QAM Qty: 30 1RF Trelegy Ellipta 200-62.5-25 mcg blister with device 1 inh inhalation DAILY Qty: 60 1RF amoxicillin-pot clavulanate [Augmentin] 500-125 mg tablet 1 tab PO BID Qty: 11 0RF Continued atorvastatin 20 mg tablet 20 mg PO HS lisinopril 20 mg tablet 40 mg PO QAM acyclovir 800 mg tablet 800 mg PO QAM albuterol sulfate 90 mcg/actuation HFA aerosol inhaler 2 puff INHALATION Q4 PRN (Reason: SOB,COUGH,WHEEZING) metformin 500 mg tablet extended release 24 hr 1,000 mg PO QAM Discontinued hydrochlorothiazide 12.5 mg capsule 12.5 mg PO QAM Advair HFA 230-21 mcg/actuation HFA aerosol inhaler 2 puff INHALATION BID Discharge Orders: Discharge Order (Routine); Ordered 06/22/22 Ordered By: Terence Garcia/Other Patient Handouts: Managing Type 2 Diabetes, Special Foot [facility] for Diabetes Admission Data Admit Date/Time: 06/17/22 21:42 Attending Provider: Terence Nance Admit Provider: Hugh Yarbrough Primary Care Provider: Yamileth Reyes Other Providers: Hugh Yarbrough ; Wilfred Samuel Muqueet
== END 2022-06-22 16:00 | disposition home health service (06) | DRG 189 ==
LOC: ED 18:54 → SUATTDRO 21:42 → 2S 21:42